=== PATIENT | male | born 1940 | race Caucasian/White ===

== ENCOUNTER 2019-06-01 16:17 | Emergency (ER) | payer SELFPAY ==
[2019-06-01 16:19] VITALS: BP 122/76; PULSE 122; RESP 18; TEMP 37.2; O2SAT 93; BMI 28.5
[2019-06-01 21:16] VITALS: TEMP 37.2
== END 2019-06-01 19:07 | disposition left against medical advice (07) ==
LOC: ED 17:19
PROVIDERS: Emergency Provider Emergency Medicine
DX: R19.7 Diarrhea, unspecified (principal); Z53.21 Procedure and treatment not carried out due to patient leaving prior to being seen by health care provider

== ENCOUNTER 2023-10-26 12:47 | Inpatient (IN) | payer MEDICARE, SELFPAY ==
[2023-10-26 12:48] VITALS: BP 149/76; PULSE 64; RESP 14; TEMP 36.4; O2SAT 98; BMI 24.3
[2023-10-26 14:25] LABS: Absolute Neutrophil Count 4.4 X10^3/uL (2.0-7.7); Basophil# 0.03 X10^3/uL; Basophil% 0.5 % (0-1); Eosinophil# 0.07 X10^3/uL; Eosinophils% 1.2 % (0-5); Hematocrit 46.9 % (40-54); Hemoglobin 15.4 g/dL (13.0-16.5); Lymphocyte % 16.8 % (19-41); Mean Corp Hgb Conc 32.8 g/dL (32-36); Mean Corpuscular Volume 91.4 fL (80-94); Mean Platelet Vol. 8.9 fl (6.2-12.0); Monocyte# 0.46 X10^3/uL; Monocyte% 7.7 % (0-10); NRBC Flagged by Analyzer 0 % (0-5); Neutrophil # 4.38 X10^3/uL (2.7-7.7); Neutrophil % 73.6 % (47-70); Platelet Count 224 K/mm3 (150-450); RBC Distribution Width CV 12.4 % (11.6-14.6); RBC Distribution Width SD 41.3 fl (35.1-43.9); Red Blood Count 5.13 M/mm3 (4.6-6.2)
--- NOTE | 2023-10-26 14:37 | ED.VIS.GI ---
HPI <JULIA Franklin - Last Filed: 10/26/23 20:53> HPI - GI History of Present Illness Chief Complaint: Abd Pain Narrative Narrative: Patient presenting today due to dysphagia that started on . He reports that he was trying to eat a piece of chicken and felt like it was stuck in his epigastric area, he was able to burp the piece of chicken back up. Yesterday, he tried to eat a few pieces of cheese and bread but those also felt stuck in his epigastric area and he again was able to burp them up. He reports that he has not had much food to eat since because of this. He was unable to take his medication this morning. He is tolerating his secretions and has been drinking water. However, he reports that even water hurts to swallow and does not feel like it is going down correctly. He denies any history of this happening before he denies any history of esophageal motility issues. Over the past week he has had some intermittent lower abdominal cramping but is not experiencing this right now. He has had normal bowel movements. He denies fever, chills, nausea, vomiting. PFSH <JULIA Franklin - Last Filed: 10/26/23 20:53> PFSH Medical History (Updated 10/26/23 @ 20:21 by Julissa Brennan) [place] (hard of hearing) Hyperlipidemia Neck fracture Home Medications aspirin 81 mg chewable tablet (Aspirin Childrens) 1 tab PO DAILY heart health 10/26/23 [History Last Taken 10/23/23] ezetimibe 10 mg tablet 10 mg PO DAILY Cholesterol 10/26/23 [History Last Taken 10/23/23] Allergy/AdvReac Type Severity Reaction Status Date / Time No Known Allergies Allergy Verified 10/26/23 20:11 Surgical History (Updated 10/26/23 @ 20:21 by Julissa Brennan) History of hip replacement Social History Smoking Status: Never smoker ROS <JULIA Franklin - Last Filed: 10/26/23 20:53> ROS ED Constitutional Constitutional ED: Denies chills or fever(s) Cardiovascular Cardiovascular: Denies chest pain Respiratory/Chest Respiratory/Chest: Denies cough or dyspnea Gastrointestinal Gastrointestinal: Denies abdominal pain, nausea or vomiting Genitourinary Genitourinary ED: Denies dysuria, hematuria or urinary urgency Musculoskeletal Musculoskeletal: Denies arthralgias or myalgias Integumentary Denies rash Neurologic Neurologic: Denies weakness EXAM <JULIA Franklin - Last Filed: 10/26/23 20:53> Physical Exam Const Vital Signs: 10/26/23 12:48 10/26/23 16:48 Temperature 97.6 F L Temperature Source Temporal Pulse Rate 64 78 Respiratory Rate 14 16 Blood Pressure 149/76 H 148/78 H Blood Pressure Mean 100 101 Pulse Ox 98 Oxygen Delivery Method Room Air Room Air Positive well nourished, well developed and no apparent distress General Appearance ED: well developed HEENT Reports normocephalic and head/scalp atraumatic Mouth ED: Yes moist mucous membranes normal Eyes PERRL and EOMs intact bilaterally Neck full ROM and supple Chest Wall inspection of chest normal Resp normal respiratory effort and clear to auscultation bilaterally Cardio regular rate and regular rhythm GI soft to palpation, non-tender, non-distended and no masses Back/Spine normal ROM and normal to inspection Extremity normal to inspection and full ROM Neuro oriented x3, CN's II-XII intact bilaterally, moves all extremities, no focal motor deficits and no sensory deficits noted Sensorium / Orientation: awake and alert Psych mental status grossly normal and thought process normal Skin no rashes or lesions noted and no wounds <Dr. Kenan Gusman, - Last Filed: 10/26/23 21:00> Physical Exam Const Vital Signs: 10/26/23 12:48 10/26/23 16:48 Temperature 97.6 F L Temperature Source Temporal Pulse Rate 64 78 Respiratory Rate 14 16 Blood Pressure 149/76 H 148/78 H Blood Pressure Mean 100 101 Pulse Ox 98 Oxygen Delivery Method Room Air Room Air MDM <JULIA Franklin - Last Filed: 10/26/23 20:53> [facility] Narrative Medical decision making narrative: Patient presenting with dysphagia that started on . He has had very little to eat since then. He reports that whenever he tries to eat food it feels stuck in his epigastric region he is able to burp this up. He has no history of esophageal motility issues. He is able to drink water but reports that it hurts to swallow and does not feel like it is going down correctly. He did report having intermittent lower abdominal cramping over the past week. CT of the abdomen and pelvis suggest colitis and gastritis with possible malignancy. This was discussed with general surgery, he has been started on ciprofloxacin and Flagyl, he will be admitted to the hospital for further workup. I have personally performed a face to face assessment of the patient and have reviewed the UMAIR Note. I performed a substantive portion of the visit including all aspects of the following. My wells findings include: History is [patient presents to the emergency department difficulty swallowing for about a week. Patient states that 2 days ago he tried to swallow a small piece of chicken and count went down but he had to cough it back up to his it was uncomfortable and could not get it down. Now he is having hard time swallowing water without a lot of discomfort. Has not eaten very much about a week. Also complaining of some lower left quadrant abdominal pain. He had no fever or chills or sweats. He denies any blood in stool or black tarry stool. Patient has history of coronary artery disease with prior stent. Patient also has high cholesterol.] Exam is [HEENT-PERRLA, EOMI. Cranial nerves II through XII grossly intact. TMs clear. Mucous membranes moist. No adenopathy. Cardiovascular-regular rate and rhythm without murmur or ectopy Lungs-clear to auscultation, chest wall stable without crepitus or subcu emphysema Abdomen-abdomen'sNormal active bowel sounds. Tender to palpation over the left lower quadrant with some mild guarding. There is no rebound, rigidity, or peritoneal signs. No masses palpated. Extremities-intact ?4, normal range of motion, normal pulses, atraumatic] Medical Decison Making [ Patient presents with difficulty swallowing concerning for esophagitis versus esophageal stricture. Also complaining of left lower quadrant abdominal pain which could indicate possible diverticulitis. Will obtain basic labs and a CT scan of the abdomen pelvis. Lab work essentially unremarkable. CT scan of the abdomen pelvis shows concern for colitis and gastritis versus infiltrative process such as a malignancy. Patient also had small ascites. Discussed case with Dr. Pitts the general surgeon on-call who recommended admission for antibiotics and further evaluation for malignancy with likely EGD. Will discuss with hospitalist to evaluate patient for admission. ] Other additions or changes: [None] Lab Data Attestation: I reviewed the patient's lab results. Lab results narrative: Creatinine 1.31, total bilirubin 1.8 Labs: Laboratory Results - last 24 hr 10/26/23 10/26/23 14:15 14:44 WBC 6.0 RBC 5.13 Hgb 15.4 Hct 46.9 MCV 91.4 MCH 30.0 MCHC 32.8 RDW Std Deviation 41.3 RDW Coeff of [place] 12.4 Plt Count 224 MPV 8.9 Immature Gran % (Auto) 0.200 Neut % (Auto) 73.6 H Lymph % (Auto) 16.8 L [place] % (Auto) 7.7 Eos % (Auto) 1.2 Baso % (Auto) 0.5 Absolute Neuts (auto) 4.4 Absolute Lymphs (auto) 1.00 Nucleated RBC % 0 Sodium 141 Potassium 4.9 Chloride 104 Carbon Dioxide 29.0 Anion Gap 8 BUN 18 Creatinine 1.31 H Estim Creat Clear Calc 41.35 Est GFR (MDRD) Af Amer 68 Est GFR (MDRD) Non-Af 56 L BUN/Creatinine Ratio 13.7 Glucose 90 Calcium 8.9 Total Bilirubin 1.80 H AST 33 ALT 27 Alkaline Phosphatase 91 Total Protein 7.2 Albumin 4.1 Globulin 3.1 Albumin/Globulin Ratio 1.3 Lipase 50 Urine Color Yellow Urine Clarity Clear Urine pH 5.0 Ur Specific Burt 1.025 Urine Protein 30 H Urine Glucose (UA) Normal Urine Ketones 50 H Urine Occult Blood Negative Urine Nitrite Negative Urine Bilirubin Negative Urine Urobilinogen Normal Ur Leukocyte Esterase Negative Urine RBC 0 SEEN Urine WBC 0 SEEN Ur Squamous Epith Cells 0 SEEN Urine Bacteria 0 SEEN Urine Mucus 0 SEEN Radiography Diagnostic Testing: Clinical Impression(s) from Imaging Studies Abdomen/Pelvis CT 10/26/23 14:40 IMPRESSION: Findings suggestive of mild diffuse colitis. Diverticulosis with no signs of diverticulitis. No bowel obstruction. Mild ascites in the upper abdomen, etiology indeterminate. Edema involving the anterior peritoneum with early metastatic deposits if there is history of neoplasm not excluded. Clinical correlation recommended and follow-up exam recommended to assess resolution. Diffuse gastritis versus infiltrative process, follow-up with upper endoscopy recommended. Electronically Signed: Patrizia Mg MD at 16:59 EST , <Dr. Kenan Gusman, DO - Last Filed: 10/26/23 21:00> [facility] Narrative Medical decision making narrative: Patient presenting with dysphagia that started on . He has had very little to eat since then. He reports that whenever he tries to eat food it feels stuck in his epigastric region he is able to burp this up. He has no history of esophageal motility issues. He is able to drink water but reports that it hurts to swallow and does not feel like it is going down correctly. He did report having intermittent lower abdominal cramping over the past week. I have personally performed a face to face assessment of the patient and have reviewed the UMAIR Note. I performed a substantive portion of the visit including all aspects of the following. My wells findings include: History is [patient presents to the emergency department difficulty swallowing for about a week. Patient states that 2 days ago he tried to swallow a small piece of chicken and count went down but he had to cough it back up to his it was uncomfortable and could not get it down. Now he is having hard time swallowing water without a lot of discomfort. Has not eaten very much about a week. Also complaining of some lower left quadrant abdominal pain. He had no fever or chills or sweats. He denies any blood in stool or black tarry stool. Patient has history of coronary artery disease with prior stent. Patient also has high cholesterol.] Exam is [HEENT-PERRLA, EOMI. Cranial nerves II through XII grossly intact. TMs clear. Mucous membranes moist. No adenopathy. Cardiovascular-regular rate and rhythm without murmur or ectopy Lungs-clear to auscultation, chest wall stable without crepitus or subcu emphysema Abdomen-abdomen'sNormal active bowel sounds. Tender to palpation over the left lower quadrant with some mild guarding. There is no rebound, rigidity, or peritoneal signs. No masses palpated. Extremities-intact ?4, normal range of motion, normal pulses, atraumatic] Medical Decison Making [ Patient presents with difficulty swallowing concerning for esophagitis versus esophageal stricture. Also complaining of left lower quadrant abdominal pain which could indicate possible diverticulitis. Will obtain basic labs and a CT scan of the abdomen pelvis. Lab work essentially unremarkable. CT scan of the abdomen pelvis shows concern for colitis and gastritis versus infiltrative process such as a malignancy. Patient also had small ascites. Discussed case with Dr. Pitts the general surgeon on-call who recommended admission for antibiotics and further evaluation for malignancy with likely EGD. Will discuss with hospitalist to evaluate patient for admission. ] Other additions or changes: [None] Lab Data Labs: Laboratory Results - last 24 hr 10/26/23 10/26/23 14:15 14:44 WBC 6.0 RBC 5.13 Hgb 15.4 Hct 46.9 MCV 91.4 MCH 30.0 MCHC 32.8 RDW Std Deviation 41.3 RDW Coeff of [place] 12.4 Plt Count 224 MPV 8.9 Immature Gran % (Auto) 0.200 Neut % (Auto) 73.6 H Lymph % (Auto) 16.8 L [place] % (Auto) 7.7 Eos % (Auto) 1.2 Baso % (Auto) 0.5 Absolute Neuts (auto) 4.4 Absolute Lymphs (auto) 1.00 Nucleated RBC % 0 Sodium 141 Potassium 4.9 Chloride 104 Carbon Dioxide 29.0 Anion Gap 8 BUN 18 Creatinine 1.31 H Estim Creat Clear Calc 41.35 Est GFR (MDRD) Af Amer 68 Est GFR (MDRD) Non-Af 56 L BUN/Creatinine Ratio 13.7 Glucose 90 Calcium 8.9 Total Bilirubin 1.80 H AST 33 ALT 27 Alkaline Phosphatase 91 Total Protein 7.2 Albumin 4.1 Globulin 3.1 Albumin/Globulin Ratio 1.3 Lipase 50 Urine Color Yellow Urine Clarity Clear Urine pH 5.0 Ur Specific Burt 1.025 Urine Protein 30 H Urine Glucose (UA) Normal Urine Ketones 50 H Urine Occult Blood Negative Urine Nitrite Negative Urine Bilirubin Negative Urine Urobilinogen Normal Ur Leukocyte Esterase Negative Urine RBC 0 SEEN Urine WBC 0 SEEN Ur Squamous Epith Cells 0 SEEN Urine Bacteria 0 SEEN Urine Mucus 0 SEEN Radiography Diagnostic Testing: Clinical Impression(s) from Imaging Studies Abdomen/Pelvis CT 10/26/23 14:40 IMPRESSION: Findings suggestive of mild diffuse colitis. Diverticulosis with no signs of diverticulitis. No bowel obstruction. Mild ascites in the upper abdomen, etiology indeterminate. Edema involving the anterior peritoneum with early metastatic deposits if there is history of neoplasm not excluded. Clinical correlation recommended and follow-up exam recommended to assess resolution. Diffuse gastritis versus infiltrative process, follow-up with upper endoscopy recommended. Electronically Signed: Patrizia Mg MD at 16:59 EST , Discharge Plan Dx/Rx/DC Orders Clinical Impression: Colitis, Dysphagia, Gastritis Disposition Disposition: Acute Care Hospital [facility] Discharge Date/Time: 10/26/23 19:47
--- NOTE | 2023-10-26 14:40 | CT_ITS ---
STUDY: CT ABDOMEN AND PELVIS WITH CONTRAST REASON FOR EXAM: Male, 83 years old. abdominal pain RADIATION DOSAGE (If Supplied By Facility): CTDIvol = ( 13.87 ) mGy, DLP = ( 528.19 ) mGycm TECHNIQUE: Transaxial images were obtained from the dome of the diaphragm to the symphysis pubis without oral contrast. IV 100mL Isovue-[id number] was administered. Sagittal and coronal images were reconstructed. Individualized dose optimization techniques were used for this CT. COMPARISON: None. FINDINGS: Minimal posterior dependent atelectasis. Normal cardiac size with coronary artery calcifications. Normal liver. The gallbladder is contracted with thickening of gallbladder wall. There is mild ascites in the upper abdomen. There is irregular tortuous density noted diffusely throughout the anterior abdominal wall which may indicate peritoneal edema, cannot exclude early peritoneal metastatic implants. There are multiple benign calcified granulomata of the spleen. Normal pancreas. Normal bilateral adrenal glands. Normal right kidney. Normal left kidney. Thickening of the wall throughout the stomach concerning for gastritis, more significant through the antrum. There is a small hiatal hernia. Normal small intestine. There is mild thickening of the wall throughout the colon concerning for colitis. There is diverticulosis throughout the colon more so through the sigmoid with no focal signs of diverticulitis. There is non-visualization of the appendix. There is diffuse atherosclerotic calcification of the abdominal aorta, without a demonstrated aneurysm. Normal inferior vena cava. Normal retroperitoneum. Normal urinary bladder. Pelvic structures are obscured by superimposition of artifact related to bilateral hip prosthesis. Trace ascites within the pelvis. Small bilateral fat-containing inguinal hernias versus cord lipomas. Advanced degenerative disease throughout the spine. CT/Abdomen/Pelvis W IV Cont ONLY IMPRESSION: Findings suggestive of mild diffuse colitis. Diverticulosis with no signs of diverticulitis. No bowel obstruction. Mild ascites in the upper abdomen, etiology indeterminate. Edema involving the anterior peritoneum with early metastatic deposits if there is history of neoplasm not excluded. Clinical correlation recommended and follow-up exam recommended to assess resolution. Diffuse gastritis versus infiltrative process, follow-up with upper endoscopy recommended. Electronically Signed: Patrizia Mg MD at 16:59 EST ,
[2023-10-26 14:43] LABS: ALB/GLOB Ratio 1.3 RATIO (0.9-2.4); AST(SGOT) 33 U/L (15-37); Alanine Aminotransfer ALT/SGPT 27 U/L (16-61); Albumin, Serum 4.1 g/dL (3.2-5.0); Alkaline Phosphatase 91 U/L (45-117); Anion Gap 8 (5-15); BUN 18 mg/dL (7-18); BUN/Creat Ratio 13.7 RATIO (10-20); Calcium,Total 8.9 mg/dL (8.5-10.1); Chloride 104 mmol/L (98-107); Creatinine, Serum 1.31 mg/dL (0.70-1.30); EST Glomerular Filtration Rate 56 mL/min (>60); Est Glom Filt Rate - Afr Amer 68 mL/min (>60); Estimated Creatinine Clearance 41.35 ml/min; Globulin 3.1 g/dL (2.2-4.2); Glucose 90 mg/dL (74-106); Potassium 4.9 mmol/L (3.5-5.1); Protein, Total 7.2 g/dL (6.4-8.2); Sodium Level 141 mmol/L (136-145)
[2023-10-26] MEDS: 0.9% Normal Saline (1000mL) 1,000 ML 999 ML IV (14:52)
--- OUTSIDE RECORDS SUMMARY | 2023-10-26 15:03 | XMS RPT_ITS | CCD ---
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 Patient Diagnosis(es): The primary encounter diagnosis was Dizziness. A diagnosis of Posterior circulation stroke (HCC) was also pertinent to this visit. has a past medical history of BPH (benign prostatic hyperplasia), CAD (coronary artery disease), Gout, Heart attack (HCC), Hyperlipidemia, Kidney stones, and Left ventricular dysfunction. has a past surgical history that includes Coronary angioplasty with stent (Left, 06/21/15); Diagnostic Cardiac Vocational Rehabilitation Supervisor Procedure (05/2015,10/2015); Coronary angioplasty; Cervical spine surgery; joint replacement (Left, 1994); and joint replacement (Right, 2002). 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 admitted with sudden onset ataxia and dizziness. Carlita 100 to 80. Recent history oftick bite, Lyme pending. Subjective Subjective: Pt. laying in bed, agree with PT treatment. Pain Screening Patient Currently in Pain: Yes Pain Assessment Pain Assessment: 0-10 Pain Level: 3 Pain Type: Acute pain Pain Location: Head Pain Descriptors: Headache Functional Pain Assessment: Activities are not prevented Non-Pharmaceutical Pain Intervention(s): Ambulation/Increased Activity Vital Signs Patient Currently in Pain: Yes Orientation Orientation Overall Orientation Status: Within Functional Limits Social/Functional History Social/Functional History Lives With: Spouse Type of Home: House Home Layout: Two level Home Access: Stairs to enter with rails Entrance Stairs - Number of Steps: 12 to 2nd floor ADL Assistance: Independent Homemaking Assistance: Independent Ambulation Assistance: Independent Transfer Assistance: Independent Active 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: Yes Type of occupation: [employer]ovani Cognition Cognition Overall Cognitive Status: WFL Objective Observation/Palpation Posture: Good AROM RLE (degrees) RLE AROM: WFL AROM LLE (degrees) LLE AROM : WFL Strength RLE Comment: 4+/5 Strength LLE Comment: 4+/5 Tone RLE RLE Tone: Normotonic Tone LLE LLE Tone: Normotonic Motor Control Gross Motor?: WNL Sensation Overall Sensation Status: WNL Bed mobility Supine to Sit: Independent Scooting: Independent Transfers Sit to Stand: Modified independent Stand to sit: Modified independent Stand Pivot Transfers: Modified independent Ambulation Ambulation?: Yes WB Status: no restriction More Ambulation?: No Ambulation 1 Surface: level tile Device: No Device Assistance: Supervision Quality of Gait: assymetrical step length Gait Deviations: Slow Jacquie;Decreased step length;Decreased step height Distance: 150 ft Stairs/Curb Stairs?: Yes Stairs # Steps : 4 Stairs Height: 6 Assistance: Stand by assistance Balance Posture: Fair Sitting - Static: Good Sitting - Dynamic: Good Standing - Static: Good;- Standing - Dynamic: Good;- Plan Plan Times per week: 3-5x/wk Plan weeks: 2 weeks Current Treatment Recommendations: Strengthening, Transfer Training, Neuromuscular Re-education, Balance Training, Gait Training, Home Exercise Program, Functional Mobility Training, Stair training Safety Devices Type of devices: Gait belt, Call light within reach, Left in chair Restraints Initially in place: No G-Code OutComes Score AM-PAC Score AM-PAC Inpatient Mobility Raw Score : 24 (06/02/19835) AM-PAC Inpatient T-Scale Score : 61.14 (06/02/19835) Mobility Inpatient CMS 0-100% Score: 0 (06/02/19835) Mobility Inpatient CMS G-Code Modifier : CH (06/02/19835) Goals Short term goals Time Frame for Short term goals: 2 weeks Short term goal 1: Ambulate 300 ft, modified independent Short term goal 2: Negotiate 1 flight of stairs, modified independent Patient Goals Patient goals : To go home. Patient s Physical Therapy Plan of Care supervision is transferred to [facility] Rehab Department Physical Therapist. Therapy Time Individual Concurrent Group Co-treatment Time In 0815 Time Out 0830 Minutes 15 Dickson Regalado, PT, GCS * Merline Huggins SLP - 06/02/2019 7:47 AM EDT Speech Language Pathology Patient passed the Nursing Swallowing Screening and is on a Cardiac diet. Completed speech orders as per stroke protocol. documented in this encounter* Tad Nolan RN - 01/11/2021 8:31 AM EDT Awake and alert. Denies pain. Tolerating oral fluids well. Denies nausea. Family called to pick pt up. * Isamar Stevens RN - 01/11/2021 7:10 AM EDT Timeout performed prior to wrist block procedure. Dr Pena in attendance. documented in this encounter Additional Source Comments (unrecognized sect ion and content) No Status Records FoundNo Status Records FoundNo Status Records FoundNo Status Records FoundNo Status Records FoundNo Status Records Found INFORMATION SOURCE (unrecogn ized section and content) DATE CREATED AUTHOR AUTHOR'S ORGANIZ ATION 11/30/2019 [facility] DATE CREATED AUTHOR AUTHOR'S ORGANIZ ATION 01/16/2021 [facility] DATE CREATED AUTHOR AUTHOR'S ORGANIZ ATION 02/07/2021 [facility] DATE CREATED AUTHOR AUTHOR'S ORGANIZ ATION 01/21/2022 [facility] ntjer[facility]n Barajas DATE CREATED AUTHOR AUTHOR'S ORGANIZ ATION 08/27/2023 [facility] Reason for Visit (unrecogniz ed section and content) Reason Comments Dizziness nausea, diarrhea tod ay Reason Comments Dizziness Fatigue Ordered Prescriptions (unrec ognized section and content) Care Teams (unrecognized sec tion and content) FOR RECORDS PERTAINING TO PATIENTS WHO ARE OR HAVE BEEN ENROLLED IN A CHEMICAL DEPENDENCY/SUBSTANCEABUSE PROGRAM, SOME INFORMATION MAY BE OMITTED. This clinical summary was aggregated from multiple sources. Caution should be exercised in using it in the provision of clinical care. This summary normalizes information from multiple sources, and as a consequence, information in this document may materially change the coding, format and clinical context of patient data. In addition, data may be omitted in some cases. CLINICAL DECISIONS SHOULD BE BASED ON THE PRIMARY CLINICAL RECORDS. [facility] [employer] [facility]. provides no warranty or guarantee of the accuracy or completeness of information in this document.
[2023-10-26 15:12] LABS: Lipase 50 U/L (13-75)
[2023-10-26 16:06] LABS: Bacteria 0 SEEN /hpf (None Seen); Mucous, Urine 0 SEEN /hpf (<or=2+); Red Blood Cells-Urine 0 SEEN /hpf (0-5); Squamous Epithelial Cells - UA 0 SEEN /hpf (0-5); White Blood Cells 0 SEEN /hpf (0-5)
[2023-10-26 16:08] LABS: Color, Urine Yellow (Yellow); Glucose, Dipstick Normal (Normal); Ketone-Dipstick 50 mg/dl (Negative); Leukocyte Esterase-Dipstick Negative /ul (Negative); Nitrite-Dipstick Negative (Negative); Occult Blood-Urine Negative /ul (Negative); Protein-Dipstick 30 mg/dl (Negative); Specific Gravity, Urine 1.025 (1.002-1.030); Urine Bilirubin Dipstick Negative (Negative); Urine Clarity Clear (Clear); Urine Urobilinogen Normal (Normal)
[2023-10-26 16:48] VITALS: BP 148/78; PULSE 78; RESP 16
[2023-10-26] MEDS: metroNIDAZOLE 500 MG/100 ML BAG 100 MG IV (18:20)
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
--- NOTE | 2023-10-26 18:24 | NURSING ---
MED SURG PHILLIPS DYSPHAGIA, GASTRITIS, COLITIS, CONCERN FOR MALIGNANCY
--- NOTE | 2023-10-26 19:05 | HP.PCM.HOS_ITS ---
HPI - General General Date of Admission: 10/26/23 Date of Service: 10/26/23 Chief Complaint: Dysphagia HPI Narrative IRINA SEXTON, is a 83-year-old male who presented to [facility] 10/26/2023 due to dysphagia that started on . He was trying to eat a piece of chicken and felt like it got stuck in his epigastric region and was able to burp the chicken back up. Yesterday tried to eat a few pieces of cheese and bread but also felt this got stuck again and was able to burp them back up. Has not had much to eat or drink since because of this and was unable to take his medicines this morning. Has been tolerating secretions and has been drinking water but feels that even water hurts to swallow and does not feel like it is going down correctly. Denies any history of anything like this in the past. In the past week he has had some abdominal cramping intermittently in the lower quadrants but normal bowel movements and not presently having any complaints. Lab workup fairly benign aside from bilirubin of 1.8 with otherwise normal liver panel and creatinine of 1.31 with no previous comparison. CT abdom en pelvis obtained which showed mild diffuse colitis with mild ascites in upper abdomen and edema involving anterior peritoneum with early metastatic deposits potentially if neoplasm not excluded as well as diffuse gastritis versus infiltrative process and recommended upper endoscopy. Hospitalist contacted for admission. Patient evaluated at bedside. Patient endorses history as above, pain when swallowing even water but more feeling in his chest and not his upper throat or palate, has never had this problem before. Has been a little bit constipated for him as he usually has bowel movements every day but has been having them now every other day, denies any history of upper endoscopy or lower endoscopies. Denies any nausea or vomiting, no diarrhea, no other complaints at this time [facility] Allergy/AdvReac Type Severity Reaction Status Date / Time No Known Allergies Allergy Verified 10/26/23 20:11 Social History Smoking Status: Never smoker ROS ROS Narrative General: Denies fever HENT: Denies headache, denies stuffy nose, denies sore throat EYES: Denies changes in vision Resp: Denies cough, denies shortness of breath Cardiac: Denies chest pain GI: some constipation, some pain when swallowing but no other abdominal pain, denies nausea/vomiting : Denies changes in urination Extremity: Denies swelling MSK: Denies weakness Neuro: Denies any numbness/tingling Heme: Denies any bleeding or bruising Skin: Denies rashes Psychiatric: No complaints voiced Vital Signs Vital Signs Vital Signs: 10/26/23 12:48 10/26/23 16:48 Temperature 97.6 F L Temperature Source Temporal Pulse Rate 64 78 Respiratory Rate 14 16 Blood Pressure 149/76 H 148/78 H Blood Pressure Mean 100 101 Pulse Ox 98 Oxygen Delivery Method Room Air Room Air Weight Weight: 70.579 kg Body Mass Index (BMI) 24.3 Physical Exam Narrative General: Alert, oriented, no apparent distress HEENT: Atraumatic, normocephalic Eyes: Anicteric, normal conjunctiva, extraocular movements grossly intact Neck: Supple Respiratory: Clear to auscultation bilaterally, normal respiratory effort Cardiovascular: Regular rate and rhythm GI: Soft, very slightly tender in lower quadrants without rebound, guarding, rigidity, nondistended Extremities: No edema Musculoskeletal: Moving all extremities Neuro: No overt focal neurological deficits Skin: No rashes appreciated Psych: Cooperative Results Lab / Micro Data 10/26/23 14:15 10/26/23 14:15 Labs: Laboratory Results - last 24 hr 10/26/23 14:15: WBC 6.0, RBC 5.13, Hgb 15.4, Hct 46.9, MCV 91.4, MCH 30.0, MCHC 32.8, RDW Std Deviation 41.3, RDW Coeff of Muluget[place] 12.4, Plt Count 224, MPV 8.9, Immature Gran % (Auto) 0.200, Neut % (Auto) 73.6 H, Lymph % (Auto) 16.8 L, [place] % (Auto) 7.7, Eos % (Auto) 1.2, Baso % (Auto) 0.5, Absolute Neuts (auto) 4.4, Absolute Lymphs (auto) 1.00, Nucleated RBC % 0, Sodium 141, Potassium 4.9, Chloride 104, Carbon Dioxide 29.0, Anion Gap 8, BUN 18, Creatinine 1.31 H, Estim Creat Clear Calc 41.35, Est GFR (MDRD) Af Amer 68, Est GFR (MDRD) Non-Af 56 L, BUN/Creatinine Ratio 13.7, Glucose 90, Calcium 8.9, Total Bilirubin 1.80 H, AST 33, ALT 27, Alkaline Phosphatase 91, Total Protein 7.2, Albumin 4.1, Globulin 3.1, Albumin/Globulin Ratio 1.3 10/26/23 14:44: Lipase 50, Urine Color Yellow, Urine Clarity Clear, Urine pH 5.0, Ur Specific Index 1.025, Urine Protein 30 H, Urine Glucose (UA) Normal, Urine Ketones 50 H, Urine Occult Blood Negative, Urine Nitrite Negative, Urine Bilirubin Negative, Urine Urobilinogen Normal, Ur Leukocyte Esterase Negative, Urine RBC 0 SEEN, Urine WBC 0 SEEN, Ur Squamous Epith Cells 0 SEEN, Urine B acteria 0 SEEN, Urine Mucus 0 SEEN Imagaing Radiology Impression Abdomen/Pelvis CT 10/26/23 14:40 IMPRESSION: Findings suggestive of mild diffuse colitis. Diverticulosis with no signs of diverticulitis. No bowel obstruction. Mild ascites in the upper abdomen, etiology indeterminate. Edema involving the anterior peritoneum with early metastatic deposits if there is history of neoplasm not excluded. Clinical correlation recommended and follow-up exam recommended to assess resolution. Diffuse gastritis versus infiltrative process, follow-up with upper endoscopy recommended. Electronically Signed: Patrizia Mg MD at 16:59 EST , Assessment & Plan Assessment/Plan (1) Dysphagia: (2) Colitis: (3) Gastritis: PLAN: Plan #Dysphagia/diffuse gastritis vs infiltrative process/diffuse colitis -CT abdomen pelvis obtained which showed mild diffuse colitis with mild ascites in upper abdomen and edema involving anterior peritoneum with early metastatic deposits potentially if neoplasm not excluded as well as diffuse gastritis versus infiltrative process and recommended upper endoscopy. -Case discussed with general surgery by ED physician and GI consult was recommended as well as Cipro and Flagyl, continue antibiotics -Clear liquid diet -Consult speech therapy -C/s GI -IV fluids #CKD stage IIIa vs SERENA -No baseline creatinine, creatinine 1.31 today, patient to receive IV fluids, will trend #?Hx CAD -Did not endorse in ED but pt may have hx of CAD and stenting remotely per ED note, this was noted after evaluation, will need to clarify, does not appear pt taking routine medications for this #DVT ppx: SCDs Zaira Horta MD Time spent in the patient's overall evaluation,decision-making process, review of diagnostic data, adjustment of management, discussion with other providers, nursing nursing and ancillary staff involved in patient's care documentation, 55 Minutes Charges/Coding Visit Charges Inpatient E&M: 91393 Init Hosp L2
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
[2023-10-26 19:45] VITALS: BP 145/85; PULSE 78; RESP 18; O2SAT 95
[2023-10-26 19:58] VITALS: BP 131/90; PULSE 70; RESP 18; TEMP 36.4; O2SAT 98
[2023-10-26 20:00] VITALS: BMI 23.6
[2023-10-26] MEDS: Pantoprazole Sodium 40 MG in 0.9% Normal Saline (100mL MB+) 100 ML 330 MG IV (22:13)
[2023-10-26] MEDS: 0.9% Normal Saline (1000mL) 1,000 ML 75 ML IV (22:13)
[2023-10-26] MEDS: 0.9% Saline Lock 10 ML Syringe IV (22:14)
[2023-10-26] MEDS: Ciprofloxacin 400 MG/200 ML BAG 200 MG IV (22:52)
[2023-10-27] VITALS (7 sets, daily range): BP systolic 87–154; BP diastolic 53–134; PULSE 65–93; RESP 16–18; TEMP 36.6–37.1; O2SAT 93–97
[2023-10-27] MEDS: metroNIDAZOLE 500 MG/100 ML BAG 100 MG IV ×3 (05:51→22:46)
[2023-10-27 07:36] LABS: Absolute Lymphocyte Count 0.79 X10^3/uL (0.83-4.51); Absolute Neutrophil Count 3.6 X10^3/uL (2.0-7.7); Basophil# 0.04 X10^3/uL; Basophil% 0.8 % (0-1); Eosinophil# 0.09 X10^3/uL; Eosinophils% 1.8 % (0-5); Hemoglobin 13.5 g/dL (13.0-16.5); Lymphocyte # 0.79 X10^3/ul (0.83-4.51); Lymphocyte % 15.7 % (19-41); Mean Corp Hgb Conc 32.9 g/dL (32-36); Mean Corpuscular Hgb 30.4 pg (27.0-32.0); Mean Corpuscular Volume 92.3 fL (80-94); Mean Platelet Vol. 9.2 fl (6.2-12.0); Monocyte# 0.48 X10^3/uL; Monocyte% 9.5 % (0-10); NRBC Flagged by Analyzer 0 % (0-5); Neutrophil # 3.61 X10^3/uL (2.7-7.7); Neutrophil % 71.8 % (47-70); Platelet Count 219 K/mm3 (150-450); RBC Distribution Width CV 12.4 % (11.6-14.6); RBC Distribution Width SD 42.4 fl (35.1-43.9); Red Blood Count 4.44 M/mm3 (4.6-6.2)
[2023-10-27 07:53] LABS: Anion Gap 9 (5-15); BUN 18 mg/dL (7-18); BUN/Creat Ratio 13.6 RATIO (10-20); Calcium,Total 8.7 mg/dL (8.5-10.1); Chloride 109 mmol/L (98-107); Cholesterol 130 mg/dL (200); Creatinine, Serum 1.32 mg/dL (0.70-1.30); EST Glomerular Filtration Rate 55 mL/min (>60); Est Glom Filt Rate - Afr Amer 67 mL/min (>60); Estimated Creatinine Clearance 41.03 ml/min; Glucose 69 mg/dL (74-106); High Density Lipoprotein 53 mg/dL; Potassium 4.2 mmol/L (3.5-5.1); Sodium Level 140 mmol/L (136-145); Thyroid Stim Hormone (TSH) 2.66 uIU/mL (0.358-3.74); Triglycerides 56 mg/dL; Very Low Density Lipoprotein 11 mg/dL (5-40)
[2023-10-27 07:59] LABS: International Normalized Ratio 1.1; Prothrombin Time (Protime)PT. 14.3 SECONDS (11.7-14.9)
[2023-10-27] MEDS: Pantoprazole Sodium 40 MG in 0.9% Normal Saline (100mL MB+) 100 ML 330 MG IV ×2 (10:02→20:34)
--- NOTE | 2023-10-27 10:12 | PN.HOSP_ITS ---
Reason for Visit Reason for Visit: Dysphagia Subjective Subjective Mr. Dee was an 83-year-old male that presented to the emergency department at [facility] on 10/26/2023 due to dysphagia that started on . He was trying to eat a piece of chicken and felt like it got stuck in his epigastric region. He was able to burp the chicken back up. On the day prior to presentation, he was trying to eat a few pieces of cheese and bread but also felt that this got stuck and he was able to burp them back up. He reported he has not had much to eat or drink since due to this. He was unable to take his medicines on the morning of presentation. He has been tolerating his own secretions and drinking water but states that even water is hurting him now. He is never had anything like this previously. Lab work on presentation was overall unremarkable. His creatinine was found to be 1.3 but we had no previous for comparison so unclear if this is baseline or if he was mildly hydrated. A CT of his abdomen pelvis was obtained and showed mild diffuse colitis with ascites in the upper abdomen and edema involving the anterior peritoneum with early metastatic deposits potentially neoplasm were not able to be excluded as well as diffuse gastritis versus infiltrative process and upper endoscopy was recommended. States he is tolerating ice chips periodically. Even water has been difficult for him to swallow. States is progressively gotten worse over the last month or 2. Denies a history of tobacco or alcohol abuse. Objective Data Objective Data Vital Signs: Vital Signs Temp Pulse Resp BP Pulse Ox O2 Del Method 98.7 F 66 18 87/58 L 97 Room Air 10/27/23 09:07 10/27/23 09:07 10/27/23 09:07 10/27/23 09:07 10/27/23 09:07 10/27/23 09:07 Oxygen Delivery Method Room Air Weight: 68.4 kg Body Mass Index (BMI) 23.6 Intake & Output: Intake and Output for Last 24 Hours 10/25/23 10/26/23 10/27/23 23:59 23:59 23:59 Intake Total 1466.25 / 1466.25 100 / 100 Balance 1466.25 / 1466.25 100 / 100 Lab / Micro Data 10/27/23 06:55 10/27/23 06:55 Labs: Laboratory Results - last 24 hr 10/26/23 14:15: WBC 6.0, RBC 5.13, Hgb 15.4, Hct 46.9, MCV 91.4, MCH 30.0, MCHC 32.8, RDW Std Deviation 41.3, RDW Coeff of [place] 12.4, Plt Count 224, MPV 8.9, Immature Gran % (Auto) 0.200, Neut % (Auto) 73.6 H, Lymph % (Auto) 16.8 L, [place] % (Auto) 7.7, Eos % (Auto) 1.2, Baso % (Auto) 0.5, Absolute Neuts (auto) 4.4, Absolute Lymphs (auto) 1.00, Nucleated RBC % 0, Sodium 141, Potassium 4.9, Chloride 104, Carbon Dioxide 29.0, Anion Gap 8, BUN 18, Creatinine 1.31 H, Estim Creat Clear Calc 41.35, Est GFR (MDRD) Af Amer 68, Est GFR (MDRD) Non-Af 56 L, BUN/Creatinine Ratio 13.7, Glucose 90, Calcium 8.9, Total Bilirubin 1.80 H, AST 33, ALT 27, Alkaline Phosphatase 91, Total Protein 7.2, Albumin 4.1, Globulin 3.1, Albumin/Globulin Ratio 1.3 10/26/23 14:44: Lipase 50, Urine Color Yellow, Urine Clarity Clear, Urine pH 5.0, Ur Specific [place] 1.025, Urine Protein 30 H, Urine Glucose (UA) Normal, Urine Ketones 50 H, Urine Occult Blood Negative, Urine Nitrite Negative, Urine Bilirubin Negative, Urine Urobilinogen Normal, Ur Leukocyte Esterase Negative, Urine RBC 0 SEEN, Urine WBC 0 SEEN, Ur Squamous Epith Cells 0 SEEN, Urine Bacteria 0 SEEN, Urine Mucus 0 SEEN 10/27/23 06:55: WBC 5.0, RBC 4.44 L, Hgb 13.5, Hct 41.0, MCV 92.3, MCH 30.4, MCH C 32.9, RDW Std Deviation 42.4, RDW Coeff of [place] 12.4, Plt Count 219, MPV 9.2, Immature Gran % (Auto) 0.400, Neut % (Auto) 71.8 H, Lymph % (Auto) 15.7 L, [place] % (Auto) 9.5, Eos % (Auto) 1.8, Baso % (Auto) 0.8, Absolute Neuts (auto) 3.6, Absolute Lymphs (auto) 0.79 L, Nucleated RBC % 0, PT 14.3, INR 1.1, Sodium 140, Potassium 4.2, Chloride 109 H, Carbon Dioxide 22.0, Anion Gap 9, BUN 18, Creati nine 1.32 H, Estim Creat Clear Calc 41.03, Est GFR (MDRD) Af Amer 67, Est GFR (MDRD) Non-Af 55 L, BUN/Creatinine Ratio 13.6, Glucose 69 L, Calcium 8.7, Triglycerides 56, Cholesterol 130, LDL Cholesterol 66, VLDL Cholesterol 11, HDL Cholesterol 53, TSH 2.66 Radiography Diagnostic Testing: Radiology Impression Abdomen/Pelvis CT 10/26/23 14:40 IMPRESSION: Findings suggestive of mild diffuse colitis. Diverticulosis with no signs of diverticulitis. No bowel obstruction. Mild ascites in the upper abdomen, etiology indeterminate. Edema involving the anterior peritoneum with early metastatic deposits if there is history of neoplasm not excluded. Clinical correlation recommended and follow-up exam recommended to assess resolution. Diffuse gastritis versus infiltrative process, follow-up with upper endoscopy recommended. Electronically Signed: Patrizia Mg MD at 16:59 EST , Physical Exam Const alert, oriented x3, no apparent distress and average body habitus Constitutional Narrative: Elderly, white male, lying in bed resting comfortably, appears comfortable and nontoxic, awakens easily, appears much younger than stated age HEENT head/scalp atraumatic and moist oral mucous membranes HEENT Narrative: Mallampati 2, no thrush Head and Scalp: normocephalic Resp normal respiratory effort, no retractions, no use of accessory muscles and clear to auscultation bilaterally Auscultation: Negative for rales, rhonchi or wheezes Cardio regular rate, regular rhythm, S1 normal heart sound, S2 normal heart sound, no murmurs, no rub, no gallops and no clicks GI normal to inspection, nondistended, normoactive bowel sounds, soft to palpation and non-tender GI Narrative: No significant fluid wave noted Extremity no clubbing, cyanosis or edema Extremity Narrative: Pedal pulses are 2+ Neuro oriented x3, moves all extremities and no focal motor deficits Speech: speech normal Psych affect normal Psych Narrative: Pleasant, interacts appropriately Assessment & Plan Assessment/Plan (1) Gastritis: (2) Dysphagia: (3) Colitis: PLAN: Plan Dysphagia/diffuse gastritis versus infiltrative process/diffuse colitis -Markedly abnormal CT on presentation which showed diffuse colitis and mild ascites in the upper abdomen with edema involving the anterior peritoneum concerning for early metastatic deposits and neoplasm as well as diffuse darien ritis versus infiltrative process and upper endoscopy was recommended -Case was discussed with general surgery and GI prior to admission -Jessica recommended--> continue antibiotics -Clear liquid diet for now but patient not tolerating much liquid also will start IV fluids at 75 cc/h with normal saline -IV PPI will increase to twice daily -Speech therapy consultation pending -Will check CT of the chest for any metastatic disease or primary or external compression of the esophagus -GI consultation is pending with probable plan for EGD tomorrow -Will make patient n.p.o. at midnight CKD stage IIIa -Serum creatinine on presentation was 1.31 and it is 1.32 today -Continue to monitor and avoid nephrotoxins -Continue IV fluids with gentle hydration due to lack of p.o. intake Hyperlipidemia -Hold home Zetia -Total cholesterol is 130 with an LDL of 66 and HDL 53 DVT prophylaxis -Start enoxaparin 40 daily and monitor hemoglobin closely CODE STATUS -DNR CCA with no intubation as verified on admission Charges/Coding Visit Charges Inpatient E&M: 33246 Subs Hosp L2
--- NOTE | 2023-10-27 10:14 | CT_ITS ---
STUDY: CT CHEST WITHOUT CONTRAST REASON FOR EXAM: Male, 83 years old. Dysphagia RADIATION DOSAGE (If Supplied By Facility): CTDIvol = ( 10.54 ) mGy, DLP = ( 368.78 ) mGycm TECHNIQUE: Transaxial imaging was performed without the administration of intravenous contrast material. Individualized dose optimization techniques were used for this CT. COMPARISON: None. FINDINGS: A calcified granuloma is present in lingula of the left upper lobe. The visualized aspects of the esophagus are grossly unremarkable. A small hiatal hernia is present containing food contents at the gastroesophageal junction with slight distention. Abdominal ascites is seen in the upper abdomen along with mesenteric edema. There is also mild to moderate mucosal thickening of the inner falls of the ascending colon and hepatic flexure. Multiple splenic granulomata are present. Multiple gallstones are present. Punctate bilateral calyceal stones are present in both kidneys. Multiple calcifications are present in the liver and spleen. There are interstitial fibrotic changes of the lungs. There is no demonstrated pleural abnormality. There is no visualized pneumonic consolidation or suspicious masses or nodules. Multiple small calcified granulomata are present in both lungs. Normal heart and pericardium. There are calcifications of the coronary arteries. Normal mediastinum. Normal hilar regions. Normal unenhanced pulmonary arteries. Normal aorta arch and descending thoracic aorta. Normal osseous structures. There is no demonstrated abnormality of the visualized upper abdomen. CT/Chest without Contrast IMPRESSION: 1. The visualized aspects of the esophagus are grossly unremarkable. A small hiatal hernia is present containing food contents at the gastroesophageal junction with slight distention. Abdominal ascites is seen in the upper abdomen along with mesenteric edema. There is also mild to moderate mucosal thickening of the inner falls of the ascending colon and hepatic flexure. Multiple splenic granulomata are present. 2. Multiple gallstones are present. Punctate bilateral calyceal stones are present in both kidneys. Multiple calcifications are present in the liver and spleen. 3. There is no visualized pneumonic consolidation or suspicious masses or nodules. Multiple small calcified granulomata are present in both lungs. Electronically Signed: Aramis Ross MD at 12:19 EST ,
[2023-10-27] MEDS: Ciprofloxacin 400 MG/200 ML BAG 200 MG IV ×2 (10:24→21:18)
[2023-10-27] MEDS: 0.9% Normal Saline (1000mL) 1,000 ML 75 ML IV ×2 (13:42→18:28)
--- NOTE | 2023-10-27 19:55 | CON.PCM.GI_ITS ---
HPI Consult Data Date of Consult: 10/27/23 HPI Narrative Reason for Consultation: dysphagia HPI Narrative: IRINA SEXTON, is a 83 M who presents with trouble swallowing. He presented to [facility] 10/26/2023 due to dysphagia that started on . He was trying to eat a piece of chicken and felt like it got stuck in his epig astric region and was able to burp the chicken back up. Yesterday tried to eat a few pieces of cheese and bread but also felt this got stuck again and was able to burp them back up. He has not had much to eat or drink since because of this and was unable to take his medicines this morning. Has been tolerating secretions and has been drinking water but feels that even water hurts to swallow and does not feel like it is going down correctly. Denies any history of anything like this in the past. In the past week he has had some abdominal cramping intermittently in the lower quadrants but normal bowel movements and not presently having any complaints. Lab workup fairly benign aside from bilirubin of 1.8 with otherwise normal liver panel and creatinine of 1.31 with no previous comparison. CT abdomen pelvis obtained which showed mild diffuse colitis with mild ascites in upper abdomen and edema involving anterior peritoneum with early metastatic deposits potentially if neoplasm not excluded as well as diffuse gastritis versus infiltrative process and recommended upper endoscopy. Patient endorses history as above, pain when swallowing even water but more feeling in his chest and not his upper throat or palate, has never had this problem before. Has been a little bit constipated for him as he usually has bowel movements every day but has been having them now every other day, denies any history of upper endoscopy or lower endoscopies. [facility] Medical History (Updated 10/27/23 @ 19:[address] Rios Friend, DO) [place] (hard of hearing) Hyperlipidemia Neck fracture Stage 3a chronic kidney disease (CKD) Home Medications aspirin 81 mg chewable tablet (Aspirin Childrens) 1 tab PO DAILY heart health 10/26/23 [History Last Taken 10/23/23] ezetimibe 10 mg tablet 10 mg PO DAILY Cholesterol 10/26/23 [History Last Taken 10/23/23] Allergy/AdvReac Type Severity Reaction Status Date / Time No Known Allergies Allergy Verified 10/26/23 20:11 Surgical History (Updated 10/26/23 @ 20:21 by Julissa Brennan) History of hip replacement Social History Smoking Status: Never smoker ROS ROS Narrative General: Denies fever HENT: Denies headache, denies stuffy nose, denies sore throat EYES: Denies changes in vision Resp: Denies cough, denies shortness of breath Cardiac: Denies chest pain GI: some constipation, some pain when swallowing but no other abdominal pain, denies nausea/vomiting : Denies changes in urination Extremity: Denies swelling MSK: Denies weakness Neuro: Denies any numbness/tingling Heme: Denies any bleeding or bruising Skin: Denies rashes Psychiatric: No complaints voiced Physical Exam Narrative General: Alert, oriented, no apparent distress HEENT: Atraumatic, normocephalic Eyes: Anicteric, normal conjunctiva, extraocular movements grossly intact Neck: Supple Respiratory: Clear to auscultation bilaterally, normal respiratory effort Cardiovascular: Regular rate and rhythm GI: Soft, very slightly tender in lower quadrants without rebound, guarding, rigidity, nondistended Extremities: No edema Musculoskeletal: Moving all extremities Neuro: No overt focal neurological deficits Skin: No rashes appreciated Psych: Cooperative Lab / Micro Data 10/27/23 06:55 10/27/23 06:55 Labs: Laboratory Results - last 24 hr 10/27/23 06:55: WBC 5.0, RBC 4.44 L, Hgb 13.5, Hct 41.0, MCV 92.3, MCH 30.4, MCHC 32.9, RDW Std Deviation 42.4, RDW Coeff of [place] 12.4, Plt Count 219, MPV 9.2, Immature Gran % (Auto) 0.400, Neut % (Auto) 71.8 H, Lymph % (Auto) 15.7 L, [place] % (Auto) 9.5, Eos % (Auto) 1.8, Baso % (Auto) 0.8, Absolute Neuts (auto) 3.6, Absolute Lymphs (auto) 0.79 L, Nucleated RBC % 0, PT 14.3, INR 1.1, Sodium 140, Potassium 4.2, Chloride 109 H, Carbon Dioxide 22.0, Anion Gap 9, BUN 18, Creatinine 1.32 H, Estim Creat Clear Calc 41.03, Est GFR (MDRD) Af Amer 67, Est GFR (MDRD) Non-Af 55 L, BUN/Creatinine Ratio 13.6, Glucose 69 L, Calcium 8.7, Triglycerides 56, Cholesterol 130, LDL Cholesterol 66, VLDL Cholesterol 11, HDL Cholesterol 53, TSH 2.66 Imagaing Radiology Impression Chest CT 10/27/23 10:14 IMPRESSION: 1. The visualized aspects of the esophagus are grossly unremarkable. A small hiatal hernia is present containing food contents at the gastroesophageal junction with slight distention. Abdominal ascites is seen in the upper abdomen along with mesenteric edema. There is also mild to moderate mucosal thickening of the inner falls of the ascending colon and hepatic flexure. Multiple splenic granulomata are present. 2. Multiple gallstones are present. Punctate bilateral calyceal stones are present in both kidneys. Multiple calcifications are present in the liver and spleen. 3. There is no visualized pneumonic consolidation or suspicious masses or nodules. Multiple small calcified granulomata are present in both lungs. Electronically Signed: Aramis Ross MD at 12:19 EST Reading Location ID and State: [address] [place] [address] , Service support , Assessment & Plan Assessment/Plan (1) Dysphagia: QUALIFIERS: Dysphagia type: esophageal phase Qualified Code(s): R13.19 - Other dysphagia (2) Colitis: (3) Gastritis: QUALIFIERS: Gastritis type: other gastritis Chronicity: chronic Gastritis bleeding: without bleeding Qualified Code(s): K29.50 - Unspecified chronic gastritis without bleeding PLAN: Plan 83 yo with progressive dysphagia -Differential diagnosis does include esophageal malignancy, esophageal stricture, eosinophilic esophagitis, sliding hiatal hernia. -CT abdomen pelvis obtained which showed mild diffuse colitis with mild ascites in upper abdomen and edema involving anterior peritoneum with early metastatic deposits potentially if neoplasm not excluded as well as diffuse gastritis versus infiltrative process and recommended upper endoscopy. -He will undergo an upper endoscopy to evaluate his upper GI tract. He was explained alternatives, risk, benefits including not withstanding bleeding, infection, sepsis, perforation, need for more discharge and . He will have an ASA of 3. Charges/Coding Visit Charges Inpatient E&M: 67982 Init Hosp L3
[2023-10-28] VITALS (10 sets, daily range): BP systolic 84–105; BP diastolic 50–69; PULSE 51–90; RESP 16–18; TEMP 36.3–37.2; O2SAT 90–97
--- NOTE | 2023-10-28 | GASB_PTH ---
PATHOLOGY RESULTS PATIENT: IRINA SEXTON Jr. LOC: MS3 U#:[id number] AGE/SX: 83/M ROOM: [facility] [place]10/26/[address]: Dr. Cody Garcia DO : 1940 BED: 1 DIS: 10/29/2023 SPEC #: [id number] RECD: 10/28/23 08:50 STATUS: RENÉE REQ #: [id number] ANNELISE: 10/28/23 00:[address]: Gabriel Ashley DEPT: SURGICAL PATHOLOGY RECD BY: Connor Seals ENTERED: 10/28/23 10:23 SP TYPE: Gastric Bx OTHR DR: DO Dr. Jitendra Shen MD Dr. Kathryn Lee, DO Dr. Paige Pierce, MD Tissues: Gastric mucous membrane Gastric mucous membrane Stomach, NOS Esophageal mucous membrane Gastric mucous membrane Procedures: Frozen Section (charge) Special Stain Group II Mucicarmine Stain (control) Surgery Specimen Level IV Alcian Blue/PAS (control) Comments: @ Ordering doctor for FSC edited from to DR.RFRIEN Yair MADDEN at 10/28/23 1030 @ Ordering doctor for SUIV edited from to @ beryl MADDEN at 10/28/23 1030 @ Submitting doctor edited from to DR.RFRIEN Yair MADDEN at 10/28/23 1030 HEADER OPERATION: EGD with foreign body removal and biopsy PRE-OP DIAGNOSIS: Dysphagia TISSUE SUBMITTED: A - Gastric body biopsy for frozen section, B - Gastric body biopsy, C - Gastric antrum biopsy for H. pylori and path, D - Lesser curvature biopsy, E - Distal esophagus biopsy FROZEN SECTION DIAGNOSIS A. Gastric body, biopsy: Negative for malignancy. LUCILA:janessa 10/28/2023 MICROSCOPIC DIAGNOSIS A. 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 See comment. B. 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 See comment. C. Gastric antrum, biopsy: Mild gastritis. Negative for malignancy. See microscopic description and comment. D. 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 See comment. E. Distal esophagus, biopsy: Poorly differentiated carcinoma, signet ring cell carcinoma. See comment. LUCILA:janessa 10/30/2023 COMMENT A. Immunohistochemistry (RF24-30) supports the above diagnosis. Mucin stain with matched control was used in the evaluation of the specimen. B. Immunohistochemistry (RF24-30) supports the above diagnosis. Mucin stain with matched control was used in the evaluation of the specimen. C. The results of immunohistochemistry for Helicobacter pylori will be reported separately (RF24-30). Immunohistochemistry (RF24-30) supports the above diagnosis. Mucin stain with matched control was used in the evaluation of the specimen. D. Immunohistochemistry (RF24-30) supports the above diagnosis. Mucin stain with matched control was used in the evaluation of the specimen. E. Immunohistochemistry (RF24-30) supports the above diagnosis. Mucin stain and alcian blue/PAS with matched controls are in the evaluation of the specimen. Immunohistochemistry (RF23-30) for microsatellite instability (mismatch repair of protein) will be performed and the results will be reported separately. This case is discussed with Dr. Ashley on 10/29/23. Case has been reviewed in consultation with Dr. Alfonso who concurs with the above diagnosis. IDC:AM MICROSCOPIC DESCRIPTION Slides are reviewed. C. The specimen shows fragments of gastric mucosa with chronic inflammatory cell infiltrates in the lamina propria consisting of lymphocytes and plasma cells, consistent with mild chronic gastritis. GROSS DESCRIPTION A - Received fresh for frozen section diagnosis labeled with the patient's name is a specimen designated gastric body biopsy. The specimen consists of three irregular fragments of light soft tissue that in aggregate measure 0.7 x 0.2 x 0.1 cm. The entire specimen is submitted for frozen section diagnosis in one cassette. B - Received in fixative is one container labeled with the patient's name and designated gastric body biopsy. The specimen consists of multiple irregular fragments of light light soft tissue that in aggregate measure 1.0 x 0.4 x 0.1 cm. The specimen is totally submitted in one cassette. C - Received in fixative is one container labeled with the patient's name and designated gastric antrum biopsy. The specimen consists of multiple irregular fragments of light light soft tissue that in aggregate measure 0.8 x 0.5 x 0.1 cm. The specimen is totally submitted in one cassette. D - Received in fixative is one container labeled with the patient's name and designated lesser curvature biopsy. The specimen consists of multiple irregular fragments of light light soft tissue that in aggregate measure 1.0 x 0.3 x 0.1 cm. The specimen is totally submitted in one cassette. E - Received in fixative is one container labeled with the patient's name and designated distal esophagus biopsy. The specimen consists of multiple irregular fragments of light light soft tissue that in aggregate measure 1.0 x 0.4 x 0.1 cm. The specimen is totally submitted in one cassette. / SJ:rg 10/28/2023 TC:0 [facility]: [id number] x5, [id number], [id number] x6 ADDENDUM ADDENDUM 01/16/2024 09:54 ONKOSIGHT NGS REPORT FROM [employer] INTERPRETATION: Negative: No pathogenic gene fusions detected involving ALK, DARIUSZ, BRAF, CCND1, EGFR, FGFR1, FGFR2, FGFR3, MET, NRG1, NTRK1, NTRK2, NTRK3, PPARD, RAF1, RET, ROS1 or THADA. Please see complete report in e-chart or EMR
[2023-10-28] MEDS: metroNIDAZOLE 500 MG/100 ML BAG 100 MG IV ×3 (05:35→23:11)
[2023-10-28 06:22] LABS: Absolute Lymphocyte Count 0.98 X10^3/uL (0.83-4.51); Absolute Neutrophil Count 3.6 X10^3/uL (2.0-7.7); Basophil# 0.02 X10^3/uL; Basophil% 0.4 % (0-1); Eosinophil# 0.13 X10^3/uL; Eosinophils% 2.4 % (0-5); Lymphocyte # 0.98 X10^3/ul (0.83-4.51); Lymphocyte % 18.2 % (19-41); Mean Corp Hgb Conc 32.5 g/dL (32-36); Mean Corpuscular Hgb 30.1 pg (27.0-32.0); Mean Corpuscular Volume 92.6 fL (80-94); Monocyte# 0.62 X10^3/uL; Monocyte% 11.5 % (0-10); NRBC Flagged by Analyzer 0 % (0-5); Neutrophil % 67.1 % (47-70); Platelet Count 190 K/mm3 (150-450); RBC Distribution Width CV 12.2 % (11.6-14.6); RBC Distribution Width SD 41.9 fl (35.1-43.9); Red Blood Count 4.32 M/mm3 (4.6-6.2); White Blood Count 5.4 K/mm3 (4.4-11.0)
[2023-10-28 06:45] LABS: Anion Gap 9 (5-15); BUN 17 mg/dL (7-18); BUN/Creat Ratio 12.1 RATIO (10-20); Calcium,Total 8.3 mg/dL (8.5-10.1); Chloride 110 mmol/L (98-107); EST Glomerular Filtration Rate 52 mL/min (>60); Est Glom Filt Rate - Afr Amer 63 mL/min (>60); Estimated Creatinine Clearance 38.69 ml/min; Glucose 75 mg/dL (74-106); Potassium 4.1 mmol/L (3.5-5.1); Sodium Level 139 mmol/L (136-145)
--- NOTE | 2023-10-28 08:20 | IMM_PTH ---
PATHOLOGY RESULTS PATIENT: IRINA SEXTON Jr. LOC: MS3 U#:[id number] AGE/SX: 83/M ROOM: [facility] [place] RE10/26/[address]: Dr. Cody Garcia DO : 1940 BED: 1 DIS: 10/29/2023 SPEC #: [id number] RECD: 10/28/23 14:04 STATUS: RENÉE REQ #: [id number] ANNELISE: 10/28/23 08:[address]: Gabriel Ashley DEPT: IMMUNOHISTOCHEMISTRY RECD BY: Ewelina Benitez ENTERED: 10/28/23 14:05 SP TYPE: IMMUNO OTHR DR: DO Dr. Jitendra Shen MD Dr. Kathryn Lee, DO Dr. Paige Pierce, MD Dr. Rahsaan Friend, DO Tissues: Stomach, NOS Stomach, NOS Stomach, NOS Stomach, NOS Esophageal mucous membrane Procedures: CK8 (initial) H Pylori (initial) MSH2 (add) MLH-1 (add) MSH6 (add) Anti-PMS2 (add) CK20 (add) CK7 (add) CK8 (add) HER2 SRIDHAR (add) KI-67 (add) P53 (add) Pankeratin (add) CDX2 (add) Comments: @ Ordering doctor for H.PYLORI edited from to @ by CHANO at 10/28/23 1416 @ Submitting doctor edited from to @ by CHANO at 10/28/23 1416 PHYSICIAN & INSTITUTION [address] [address] SPECIMEN INFORMATION: Tissue Source: A - Gastric body, B - Gastric body, C - Gastric antrum, D - Lesser curvature, E - Distal esophagus Clinical Info: Dysphagia Specimen Number: [id number] CPT code: 90127 x5, 22763 x20 METHODOLOGY: Deparaffinized sections of prefer/formalin-fixed tissue or PAP/DQ stained slides are incubated with monoclonal/polyclonal antibodies/oligonucleotide probes. Localization is made via biotin free immunoperoxidase method. Appropriate controls are performed and reacted as expected. Results on target cell population are indicated in the following table: RESULTS: ANTIBODY / CLONE RESULT Block A CK8 (66maxkC91) positive CK7 (OV-TL12/30) positive AE1-3 (AE1/AE3/PCK26) positive Block B CK8 (20bgwuG84) positive CK7 (OV-TL12/30) positive AE1-3 (AE1/AE3/PCK26) positive Block C H Pylori (polyclonal) negative CK8 (06vlxmK90) negative * CK7 (OV-TL12/30) negative AE1-3 (AE1/AE3/PCK26) negative * *?Positive in normal mucosal tissue. Block D CK8 (54slfxF76) positive CK7 (OV-TL12/30) positive AE1-3 (AE1/AE3/PCK26) positive Block E Her-2neu (CB11) negative (0) CK8 (92nfnxX04) positive CK7 (OV-TL12/30) positive, focal AE1-3 (AE1/AE3/PCK26) positive CK20 (KS20.8) negative CDX2 (ICL7662X) positive MLH-1 (M1) positive MSH2 (25D12) positive MSH6 (44) positive PMS2 (IAJ5256) positive Ki-67 (30-9) positive, moderate P53 (DO-7) positive, missense mutation pattern These tests were developed and their performance characteristics determined by [facility]. They may not have been cleared or approved by the U.S. Food and Drug Administration. The FDA has determined that such clearance or approval is not necessary. The above immunohistochemical/dualISH markers are ordered and reviewed by the Pathologist. INTERPRETATION: A. Gastric body, biopsy: Focal area of poorly differentiated carcinoma, signet ring cell carcinoma. B. Gastric body, biopsy: Focal area of poorly differentiated carcinoma, signet ring cell carcinoma. C. Gastric antrum, biopsy: Negative for Helicobacter pylori organisms. Negative for malignancy. D. Lesser curvature, biopsy: Focal area of poorly differentiated carcinoma, signet ring cell carcinoma. E. Distal esophagus, biopsy: Poorly differentiated carcinoma, signet ring cell carcinoma. Result of Microsatellite Instability Study: Negative (no loss of mismatch protein; no microsatellite instability detected). SJ:janessa 10/30/2023
--- NOTE | 2023-10-28 08:51 | OP.CCLET_ITS ---
10/28/2023 Jitendra Jorgensen Re : Upper GI endoscopy procedure for Rah Dee Dear Joslyn This procedure was performed on Saturday, October 28, 2023. My impressions and recommendations are as follows: Impressions : - Abnormal esophageal motility. - Food in the lower third of the esophagus. Removal was successful. - Moderate Schatzki ring. Dilated. - Nodular mucosa in the cardia, in the gastric body, in the greater curvature of the stomach, in the lesser curvature of the stomach and in the gastric antrum. Biopsied. - Duodenal erosions without bleeding. Recommendations : - [facility]. - Full liquid diet. - Continue present medications. - Await pathology results. My findings are described in the full procedure note, which is enclosed. If I can be of further assistance, please feel free to contact me at . Sincerely, Gabriel Ashley, 10/28/2023 8:50:41 AM This report has been signed electronically.
--- NOTE | 2023-10-28 08:51 | OP.EGD_ITS ---
Patient Name: Rah Dee Procedure Date: 10/28/2023 8:05 AM Date of : 1940 Age: 83 Procedure: Upper GI endoscopy Indications: Dysphagia Providers: Gabriel Ashley DO Medicines: Monitored Anesthesia Care Patient Profile: This is an 83 year old male. Refer to note in patient chart for documentation of history and physical. Patient has symptoms of dysphagia with both liquids and solids. Complications: No immediate complications. Procedure: Pre-Anesthesia Assessment: - Prior to the procedure, a History and Physical was performed, and patient medications and allergies were reviewed. The patient is competent. The risks and benefits of the procedure and the sedation options and risks were discussed with the patient. All questions were answered and informed consent was obtained. Patient identification and proposed procedure were verified by the physician. Mental Status Examination: normal. Prophylactic Antibiotics: The patient does not require prophylactic antibiotics. Prior Anticoagulants: The patient has taken no anticoagulant or antiplatelet agents. ASA Grade Assessment: III - A patient with severe systemic disease. After reviewing the risks and benefits, the patient was deemed in satisfactory condition to undergo the procedure. The anesthesia plan was to use monitored anesthesia care (MAC). Immediately prior to administration of medications, the patient was re-assessed for adequacy to receive sedatives. The heart rate, respiratory rate, oxygen saturations, blood pressure, adequacy of pulmonary ventilation, and response to care were monitored throughout the procedure. The physical status of the patient was re-assessed after the procedure. After obtaining informed consent, the endoscope was passed under direct vision. Throughout the procedure, the patient's blood pressure, pulse, and oxygen saturations were monitored continuously. The Endoscope was introduced through the mouth, and advanced to the second part of duodenum. The upper GI endoscopy was accomplished without difficulty. The patient tolerated the procedure well. Scope In: 8:13:06 AM Scope Out: 8:41:27 AM Total Procedure Duration Time 0 hours 28 minutes 21 seconds Findings: Abnormal motility was noted in the esophagus. The cricopharyngeus was normal. There are extra peristaltic waves in the esophageal body. The distal esophagus/lower esophageal sphincter is spastic, but gives up passage to the endoscope. Tertiary peristaltic waves are noted. Food was found in the lower third of the esophagus. Removal was accomplished with a Phillips net. Verification of patient identification for the specimen was done. Estimated blood loss was minimal. A moderate Schatzki ring was found at the gastroesophageal junction. A guidewire was placed and the scope was withdrawn. Dilation was performed with a Savary dilator with no resistance at 45 Fr. The dilation site was examined and showed mild mucosal disruption. Estimated blood loss was minimal. Diffuse nodular mucosa was found in the cardia, in the gastric body, on the greater curvature of the stomach, on the lesser curvature of the stomach and in the gastric antrum. Biopsies were taken with a cold forceps for histology. Verification of patient identification for the specimen was done. Estimated blood loss was minimal. A few localized erosions without bleeding were found in the duodenal bulb. Impression: - Abnormal esophageal motility. - Food in the lower third of the esophagus. Removal was successful. - Moderate Schatzki ring. Dilated. - Nodular mucosa in the cardia, in the gastric body, in the greater curvature of the stomach, in the lesser curvature of the stomach and in the gastric antrum. Biopsied. - Duodenal erosions without bleeding. Recommendation: - Return patient to [facility] for [facility] care. - Full liquid diet. - Continue present medications. - Await pathology results. Procedure Code(s): --- Professional --- 82737, Esophagogastroduodenoscopy, flexible, transoral; with removal of foreign body(s) 91684, 51, Esophagogastroduodenoscopy, flexible, transoral; with insertion of guide wire followed by passage of dilator(s) through esophagus over guide wire [id number], 59, Esophagogastroduodenoscopy, flexible, transoral; with biopsy, single or multiple CPT copyright 2021 [employer]. All rights reserved. The codes documented in this report are preliminary and upon salon assistant review may be revised to meet current compliance requirements. Gabriel Ashley DO 10/28/2023 8:50:41 AM This report has been signed electronically. Number of Addenda: 0 Note Initiated On: 10/28/2023 8:05 AM
[2023-10-28] MEDS: Pantoprazole Sodium 40 MG in 0.9% Normal Saline (100mL MB+) 100 ML 330 MG IV ×2 (09:56→21:30)
--- NOTE | 2023-10-28 10:40 | CASEMGMT ---
MARCELO ASENCIO Assessment Face to Face with patient for initial transition planning/care coordination assessment. MARCELO ASENCIO introduced self and role at [facility], pt voices understanding. Pt is A&Ox3 and is resting comfortably in bed and is calm. Care providers, pharmacy, and demographics verified. Admitting dx: Dysphagia LACE Strata: 1 PCP: Joslyn Specialists: Denies Preferred [facility]acy: [facility] Insurance: [employer]ARP [facility] Prescription Benefit: Yes LNOK: Shivani Dee (Daughter), Jessy Dee (), Gato Dee (Son) Living Arrangements: Pt states that his lives at home with his and son in a 2 story home with a basement with handrails. There are 3 steps to enter the home with no issues. ADLs/IADLs: States complete independence. Transportation: Pt states he, son, and daughter drive. DME: Pt states that he has a walker and cane at home but does not need to use. Denies O2 use and all other DME. HHC/SNF: Denies history or needs Pt Plan: DC home to his and son via his daughter with no additional needs. Pt denies any further questions or concerns at this time. Ana Palumbo RN, CM
[2023-10-28] MEDS: Ciprofloxacin 400 MG/200 ML BAG 200 MG IV ×2 (11:10→21:36)
[2023-10-28] MEDS: 0.9% Normal Saline (1000mL) 1,000 ML 75 ML IV (14:48)
[2023-10-28] MEDS: Bisacodyl 5 MG Tablet 20 MG PO (14:48)
[2023-10-28] MEDS: Polyethylene Glycol 3350 BOWEL PREP 1 BOTTLE PO (16:24)
--- NOTE | 2023-10-28 17:35 | PCM.PN.HOSP ---
Reason for Visit Reason for Visit: Diagnoses Unspecified chronic gastritis without bleeding (10/26/23) Gastritis, unspecified, without bleeding (10/26/23) Noninfective gastroenteritis and colitis, unspecified (10/26/23) Dysphagia, unspecified (10/26/23) Other dysphagia (10/26/23) Subjective Subjective Patient seen at bedside this afternoon, daughter present. Patient was having EGD done this morning. Was found to have Schatzki ring on EGD, esophagus was dilated. Patient states that he tolerated the procedure well, denies any chest pain or discomfort currently. Has not tried eating yet since coming back up to the floor. However, he is looking forward to trying liquids soon. He and daughter are agreeable to him having a colonoscopy done tomorrow for further evaluation as long as he is able to complete the prep tonight. Patient is anxious to go home as soon as he can. He denies any other acute concerns at this time. Objective Data Objective Data Vital Signs: Vital Signs Temp Pulse Resp BP Pulse Ox O2 Del Method O2 Flow Rate 98.0 F 51 L 16 91/56 L 95 Room Air 3 10/28/23 09:46 10/28/23 09:46 10/28/23 09:46 10/28/23 09:46 10/28/23 09:46 10/28/23 09:46 10/28/23 09:00 Oxygen Flow Rate (L/min) 3 Oxygen Delivery Method Room Air Weight: 68.4 kg Body Mass Index (BMI) 23.6 Intake & Output: Intake and Output for Last 24 Hours 10/26/23 10/27/23 10/28/23 23:59 23:59 23:59 Intake Total 1466.25 / 1466.25 2380.00 / 2480.00 1451.25 / 1451.25 Balance 1466.25 / 1466.25 2380.00 / 2480.00 1451.25 / 1451.25 Lab / Micro Data 10/28/23 06:10 10/28/23 06:10 Labs: Laboratory Results - last 24 hr 10/28/23 06:10: WBC 5.4, RBC 4.32 L, Hgb 13.0, Hct 40.0, MCV 92.6, MCH 30.1, MCHC 32.5, RDW Std Deviation 41.9, RDW Coeff of [place] 12.2, Plt Count 190, MPV 9.0, Immature Gran % (Auto) 0.400, Neut % (Auto) 67.1, Lymph % (Auto) 18.2 L, [place] % (Auto) 11.5 H, Eos % (Auto) 2.4, Baso % (Auto) 0.4, Absolute Neuts (auto) 3.6, Absolute Lymphs (auto) 0.98, Nucleated RBC % 0, Sodium 139, Potassium 4.1, Chloride 110 H, Carbon Dioxide 20.0 L, Anion Gap 9, BUN 17, Creatinine 1.40 H, Estim Creat Clear Calc 38.69, Est GFR (MDRD) Af Amer 63, Est GFR (MDRD) Non-Af 52 L, BUN/Creatinine Ratio 12.1, Glucose 75, Calcium 8.3 L Physical Exam Const alert, oriented x3, no apparent distress and average body habitus Constitutional Narrative: Elderly male, laying comfortably in bed, conversing normally, no acute distress. General Appearance: cooperative and comfortable HEENT normocephalic, head/scalp atraumatic, hearing grossly normal bilaterally, nasal mucous membranes and turbinates normal and moist oral mucous membranes Eyes PERRL, EOMs intact bilaterally and conjunctivae normal Neck full ROM, no lymphadenopathy and supple Lymph Lymphatic: no lymphadenopathy noted Chest inspection of chest normal Resp normal respiratory effort, normal air movement, no use of accessory muscles and clear to auscultation bilaterally Cardio regular rate, regular rhythm, no murmurs and peripheral pulses 2+ throughout GI normal to inspection, nondistended, normoactive bowel sounds, soft to palpation, non-tender and non-distended Back/Spine normal ROM Extremity normal to inspection, full ROM and no pedal edema Skin no rashes or lesions noted Neuro no focal motor deficits and no sensory deficits noted Speech: speech normal Psych mental status grossly normal Assessment & Plan Assessment/Plan (1) Dysphagia: QUALIFIERS: Dysphagia type: esophageal phase Qualified Code(s): R13.19 - Other dysphagia (2) Colitis: PLAN: Plan Patient is an 83-year-old male who presented to [facility] ED on 10/[facility]/2023 with dysphagia. 1. Dysphagia ? GI following. S/p EGD on 10/28, showed moderate Schatzki ring that was dilated, nodular mucosa in stomach without gastritis that was biopsied, duodenal erosions without bleeding, abnormal esophageal motility. Suspect Schatzki ring was primary reason for dysphagia but esophageal dysmotility also could be playing a role. Speech therapy consulted, MBSS ordered per their recommendations, will follow up. 2. Diffuse colitis, new onset ascites with concern for malignancy ? CT abdomen pelvis with IV contrast on admit showed findings suggestive of mild diffuse colitis; also showed mild ascites in upper abdomen and edema involving anterior peritoneum with concern for early metastatic deposits. GI following as above. Planning for colonoscopy tomorrow if patient is able to complete prep. Continue IV ciprofloxacin and IV Flagyl for now. Chronic medical conditions: ? CKD stage IIIa: Creatinine 1.3 on admit, stable at baseline. Monitor. ? Hyperlipidemia: Holding home Zetia, okay to restart on discharge. DVT prophylaxis: Lovenox CODE STATUS: DNR CCA, DNI Expected disposition: Home, 1 to 2 days Total clinical time spent by myself addressing the patient's medical issues, reviewing all the data, and collaborating with patient's care team: 35 minutes. Charges/Coding Visit Charges Inpatient E&M: 84554 Subs Hosp L2
[2023-10-28] MEDS: 0.9% Saline Lock 10 ML Syringe IV (21:36)
[2023-10-29] VITALS (11 sets, daily range): BP systolic 87–118; BP diastolic 56–80; PULSE 58–66; RESP 12–16; TEMP 36.4–37.1; O2SAT 94–98
[2023-10-29] MEDS: metroNIDAZOLE 500 MG/100 ML BAG 100 MG IV (06:00)
[2023-10-29] MEDS: 0.9% Saline Lock 10 ML Syringe IV (06:01)
[2023-10-29] MEDS: 0.9% Normal Saline (1000mL) 1,000 ML 75 ML IV (09:50)
[2023-10-29] MEDS: Pantoprazole Sodium 40 MG in 0.9% Normal Saline (100mL MB+) 100 ML 330 MG IV (09:50)
[2023-10-29] MEDS: Ciprofloxacin 400 MG/200 ML BAG 200 MG IV (10:51)
[2023-10-29] MEDS: Lactated Ringers 1,000 ML 15 ML IV (13:07)
--- NOTE | 2023-10-29 14:26 | OP.COLON_ITS ---
Patient Name: Rah Dee Procedure Date: 10/29/2023 1:41 PM Date of : 1940 Age: 83 Procedure: Colonoscopy Indications: Abnormal CT of the GI tract Providers: Gabriel Ashley DO Medicines: Monitored Anesthesia Care Patient Profile: This is an 83 year old male. Refer to note in patient chart for documentation of history and physical. Last Colonoscopy: none. The patient's first colonoscopy is today. Complications: No immediate complications. Procedure: Pre-Anesthesia Assessment: - Prior to the procedure, a History and Physical was performed, and patient medications and allergies were reviewed. The patient is competent. The risks and benefits of the procedure and the sedation options and risks were discussed with the patient. All questions were answered and informed consent was obtained. Patient identification and proposed procedure were verified by the physician in the pre-procedure area. Mental Status Examination: alert and oriented. Airway Examination: normal oropharyngeal airway and neck mobility. Respiratory Examination: clear to auscultation. CV Examination: normal. Prophylactic Antibiotics: The patient does not require prophylactic antibiotics. Prior Anticoagulants: The patient has taken no anticoagulant or antiplatelet agents. ASA Grade Assessment: II - A patient with mild systemic disease. After reviewing the risks and benefits, the patient was deemed in satisfactory condition to undergo the procedure. The anesthesia plan was to use monitored anesthesia care (MAC). Immediately prior to administration of medications, the patient was re-assessed for adequacy to receive sedatives. The heart rate, respiratory rate, oxygen saturations, blood pressure, adequacy of pulmonary ventilation, and response to care were monitored throughout the procedure. The physical status of the patient was re-assessed after the procedure. After I obtained informed consent, the scope was passed under direct vision. Throughout the procedure, the patient's blood pressure, pulse, and oxygen saturations were monitored continuously. The colonoscope was introduced through the anus and advanced to the cecum, identified by appendiceal orifice and ileocecal valve. The colonoscopy was performed without difficulty. The patient tolerated the procedure well. The quality of the bowel preparation was adequate. The ileocecal valve, appendiceal orifice, and rectum were photographed. Scope In: 1:57:21 PM Scope Withdrawal Time 0 hours 9 minutes 42 seconds Scope Out: 2:14:45 PM Total Procedure Duration Time 0 hours 17 minutes 24 seconds Findings: The perianal and digital rectal examinations were normal. Multiple small and large-mouthed diverticula were found in the recto-sigmoid colon and sigmoid colon. A diffuse area of moderate melanosis was found in the entire colon. Impression: - Diverticulosis in the recto-sigmoid colon and in the sigmoid colon. - Melanosis in the colon. - No specimens collected. Recommendation: - Return patient to [facility] for ongoing care. - Resume previous diet. - Continue present medications. - No repeat colonoscopy due to age. Procedure Code(s): --- Professional --- 33773, Colonoscopy, flexible; diagnostic, including collection of specimen(s) by brushing or washing, when performed (separate procedure) CPT copyright 2021 [place]. All rights reserved. The codes documented in this report are preliminary and upon soc analyst review may be revised to meet current compliance requirements. Gabriel Ashley DO 10/29/2023 2:26:33 PM This report has been signed electronically. Number of Addenda: 0 Note Initiated On: 10/29/2023 1:41 PM
--- NOTE | 2023-10-29 14:27 | OP.CCLET_ITS ---
10/29/2023 Jitendra Jorgensen Re : Colonoscopy procedure for Rah Dee Dear Joslyn This procedure was performed on Sunday, October 29, 2023. My impressions and recommendations are as follows: Impressions : - Diverticulosis in the recto-sigmoid colon and in the sigmoid colon. - Melanosis in the colon. - No specimens collected. Recommendations : - Return patient to [facility] for [facility] care. - Resume previous diet. - Continue present medications. - No repeat colonoscopy due to age. My findings are described in the full procedure note, which is enclosed. If I can be of further assistance, please feel free to contact me at . Sincerely, Gabriel Ashley, 10/29/2023 2:26:33 PM This report has been signed electronically.
--- NOTE | 2023-10-29 17:55 | DCINST_ITS ---
Discharge Instructions Diet Discharge Diet: No restrictions Activity Discharge Activity: No Restrictions Weight Bearing Status: Full weight bearing Follow Up Care Test Results: Test results from this visit will be discussed in further detail at your follow- up appointment, if applicable. Discharge Plan Admission Admit Date/Time: 10/26/23 19:05 Primary Reason for Your Visit: Difficulty swallowing Attending Provider: Cody Garcia Primary Care Provider: Jitendra Jorgensen Consulting Providers: Zaira Horta; Gerri Gee Discharge Orders/Prescriptions Prescriptions: Continued ezetimibe 10 mg tablet 10 mg PO DAILY Patient Comments: take 1 tablet by mouth daily aspirin [Aspirin Childrens] 81 mg tablet,chewable 1 tab PO DAILY Referrals / Follow Up: Jitendra Jorgensen MD [Primary Care Provider] - Care Physician,No Primary [Non-Staff] - Disposition Disposition (needs filled in before D/C Order can be placed): Home, Self Care
--- NOTE | 2023-10-29 17:56 | PCM.DC.SUM ---
Providers Date of Admission: 10/26/23 Date of Discharge: 10/29/23 Primary Care Physician: Dr. Jitendra Jorgensen MD Consultations 10/26/23 21:39 Consult: Gastroenterology Routine Consulting Provider: Dominick Gastroenterology Reason for Consult: dysphagia, gastritis, colitis, ?malignancy EMERGENT Consult: No MD Notified: Yes Date Notified: 10/26/23 Time Notified: 23:10 Method of Notification: phone Reason For Visit: DYSPHAGIA Diagnosis Discharge Diagnosis (1) Dysphagia: Status: Acute Code(s): R13.10 - Dysphagia, unspecified Qualifiers: Dysphagia type: esophageal phase Qualified Code(s): R13.19 - Other dysphagia (2) Colitis: Status: Acute Code(s): K52.9 - Noninfective gastroenteritis and colitis, unspecified Medications at Discharge Home Medications aspirin 81 mg chewable tablet (Aspirin Childrens) 1 tab PO DAILY heart health 10/26/23 ezetimibe 10 mg tablet 10 mg PO DAILY Cholesterol 10/26/23 Hospital Course Operations None Procedures Colonoscopy, EGD and - (CT chest w/out contrast, CT abdomen/pelvis with IV contrast) Summary of Care Provided Minutes Spent on Discharge: 35 Hospital Course: Patient is an 83-year-old male who presented to [facility] ED on 10/26/2023 with dysphagia. Hospital course as noted below. Discharged home in stable condition on 10/29. 1. 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 GI followed. S/p EGD on 10/28, showed moderate Schatzki ring that was dilated, nodular mucosa in stomach with biopsy sample taken that was prelim positive for gastric adenocarcinoma. Suspect Schatzki ring was primary reason for dysphagia but new cancer likely contributing as well. CTAP showed mild ascites in upper abdomen and edema involving anterior peritoneum with concern for early metastatic deposits. GI assisting with patient having close outpatient Oncology follow up after discharge. 2. Concern for diffuse colitis ? CT abdomen pelvis with IV contrast on admit showed findings suggestive of mild diffuse colitis. GI following as above. Colonoscopy 10/29 with multiple diverticuli noted w/ no diverticulitis. On IV cipro/flagyl while inpatient, [facility] on discharge. Chronic medical conditions: ? CKD stage IIIa: Creatinine 1.3 on admit, stable at baseline. ? Hyperlipidemia: Held home Zetia while inpatient, restarted on discharge. Total clinical time spent by myself addressing the patient's discharge needs: 35 minutes. Physical Exam Const alert, oriented x3, no apparent distress and average body habitus Constitutional Narrative: Elderly male, sitting up in bed, conversing normally, no acute distress. General Appearance: cooperative and comfortable HEENT normocephalic, head/scalp atraumatic, hearing grossly normal bilaterally, nasal mucous membranes and turbinates normal and moist oral mucous membranes Eyes PERRL, EOMs intact bilaterally and conjunctivae normal Neck full ROM, no lymphadenopathy and supple Lymph Lymphatic: no lymphadenopathy noted Chest inspection of chest normal Resp normal respiratory effort, normal air movement, no use of accessory muscles and clear to auscultation bilaterally Cardio regular rate, regular rhythm, no murmurs and peripheral pulses 2+ throughout GI normal to inspection, nondistended, normoactive bowel sounds, soft to palpation, non-tender and non-distended Back/Spine normal ROM Extremity normal to inspection, full ROM and no pedal edema Skin no rashes or lesions noted Neuro no focal motor deficits and no sensory deficits noted Speech: speech normal Psych mental status grossly normal Weight / BMI Weight Weight: 68.4 kg Body Mass Index (BMI) 23.6 ABG / Lab / Microbiology Data 10/28/23 06:10 10/28/23 06:10 D/C Instructions Discharge Diet: No restrictions Weight Bearing Status: Full weight bearing Meaningful Use Info Meaningful Use Diagnoses (Choose all that apply): None applicable Discharge Plan Admission Admit Date/Time: 10/26/23 19:05 Primary Reason for Your Visit: Difficulty swallowing Attending Provider: Cody Garcia Primary Care Provider: Jitendra Jorgensen Consulting Providers: Zaira Horta; Gerri Gee Discharge Orders/Prescriptions Prescriptions: Continued ezetimibe 10 mg tablet 10 mg PO DAILY Patient Comments: take 1 tablet by mouth daily aspirin [Aspirin Childrens] 81 mg tablet,chewable 1 tab PO DAILY Referrals / Follow Up: Jitendra Jorgensen MD [Primary Care Provider] - Care Physician,No Primary [Non-Staff] - Disposition Disposition (needs filled in before D/C Order can be placed): Home, Self Care Charges/Coding Visit Charges Inpatient E&M: 18645 Disch Hosp >30min
== END 2023-10-29 18:00 | disposition home or self-care (01) | DRG 392 ==
LOC: ED 18:13 → MS3 18:21
PROVIDERS: Internal Medicine; Internal Medicine Gastroenterology; Physician Assistant; Admitting Provider Internal Medicine; Emergency Provider Emergency Medicine; PCP Family Medicine; Visit Provider Hospitalist
PROC: 0DJ08ZZ Inspection of Upper Intestinal Tract, Via Natural or Artificial Opening Endoscopic (ICD-10-PCS; CPT 43235; principal; 2023-10-28 08:15)
PROC: 0DJD8ZZ Inspection of Lower Intestinal Tract, Via Natural or Artificial Opening Endoscopic (ICD-10-PCS; CPT 45378; principal; 2023-10-29 13:55)
DX: K22.2 Esophageal obstruction (principal); R18.8 Other ascites; C16.9 Malignant neoplasm of stomach, unspecified; C78.6 Secondary malignant neoplasm of retroperitoneum and peritoneum; T18.128A Food in esophagus causing other injury, initial encounter; K26.9 Duodenal ulcer, unspecified as acute or chronic, without hemorrhage or perforation; R13.19 Other dysphagia; N18.31 Chronic kidney disease, stage 3a; K22.4 Dyskinesia of esophagus; E78.00 Pure hypercholesterolemia, unspecified; I25.10 Atherosclerotic heart disease of native coronary artery without angina pectoris; K52.9 Noninfective gastroenteritis and colitis, unspecified; K57.30 Diverticulosis of large intestine without perforation or abscess without bleeding; K29.50 Unspecified chronic gastritis without bleeding; W44.F3XA Food entering into or through a natural orifice, initial encounter; Z66 Do not resuscitate; Z95.5 Presence of coronary angioplasty implant and graft; K63.89 Other specified diseases of intestine
CPT/HCPCS: 36415; 71250; 74177; 80048; 80053; 80061; 81001; 83690; 84443; 85025; 85610; 88305; 88313; 88331; 88341; 88342; 92610; 97802; 99284; J7030; J7120; Q9967; A4216; J0744; J2405

== ENCOUNTER → 2023-11-22 | Outpatient (CLI) | payer MEDICARE, SELFPAY ==
--- NOTE | 2023-11-22 | IMM_PTH ---
PATHOLOGY RESULTS PATIENT: IRINA SEXTON Jr. LOC: [facility]#:[id number] AGE/SX: 83/M ROOM: RE11/22/[address]: Dr. Dave Abraham MD : 1940 BED: DIS: 11/22/2023 SPEC #: [id number] RECD: 11/25/23 13:46 STATUS: RENÉE REQ #: [id number] ANNELISE: 11/22/23 00:[address]: Dave Abraham DEPT: IMMUNOHISTOCHEMISTRY RECD BY: Ewelina Benitez ENTERED: 11/25/23 13:50 SP TYPE: IMMUNO OTHR DR: Dr. Jitendra Jorgensen MD Tissues: PARACENTESIS FLUID Procedures: RCC (add) NAPSIN A (add) True Ret (add) CEA (add) CK20 (add) CK5-6 (add) CK7 (add) CK8 (add) MERLIN (add) HER2 SRIDHAR (add) KI-67 (add) P53 (add) TTF1 (add) Vimentin (add) Pankeratin (initial) GATA3 (add) P40 (add) CDX2 (add) PSAP (add) PAX8 (add) MOC-31 (add) PHYSICIAN & [place] [id number] SPECIMEN INFORMATION: Tissue Source: Paracentesis fluid Clinical Info: Ascites, gastric cancer Specimen Number: [id number] CPT code: 11371, 16325 x20 METHODOLOGY: Deparaffinized sections of prefer/formalin-fixed tissue or PAP/DQ stained slides are incubated with monoclonal/polyclonal antibodies/oligonucleotide probes. Localization is made via biotin free immunoperoxidase method. Appropriate controls are performed and reacted as expected. Results on target cell population are indicated in the following table: RESULTS: ANTIBODY / CLONE RESULT Her-2neu (CB11) negative AE1-3 (AE1/AE3/PCK26) positive CK7 (OV-TL12/30) positive CK8 (79imjmY43) positive CK20 (KS20.8) negative CDX2 (ZOQ3329U) negative Vimentin (V9) positive CALRET (polyclonal) positive CK5-6 (D5 & 1684) negative P40 (BC28) negative MERLIN (E29) positive CEA (11-7/TF-3HB-1) positive P53 (DO-7) positive, wild type Ki-67 (30-9) positive, low MOC-31 (4561) negative, dim PAX8 (MRQ50) negative GATA3 (L50-823) negative TTF-1 (8G7G3/1) negative Napsin A (Rabbit Polyclonal) negative RCC (PN-15) negative PSAP (PASE/4LJ) negative These tests were developed and their performance characteristics determined by [facility]. They may not have been cleared or approved by the U.S. Food and Drug Administration. The FDA has determined that such clearance or approval is not necessary. The above immunohistochemical/dualISH markers are ordered and reviewed by the Pathologist. INTERPRETATION: Paracentesis fluid (cell block): Atypical epithelioid cells present. AM:janessa 11/27/2023 Case has been reviewed in consultation with Dr. Myers who concurs with the above diagnosis. IDC:SJ
[2023-11-22 12:08] LABS: Absolute Lymphocyte Count 0.73 X10^3/uL (0.83-4.51); Absolute Neutrophil Count 3.9 X10^3/uL (2.0-7.7); Basophil# 0.03 X10^3/uL; Basophil% 0.6 % (0-1); Eosinophils% 1.9 % (0-5); Hematocrit 45.4 % (40-54); Hemoglobin 14.6 g/dL (13.0-16.5); Lymphocyte # 0.73 X10^3/ul (0.83-4.51); Lymphocyte % 13.7 % (19-41); Mean Corp Hgb Conc 32.2 g/dL (32-36); Mean Corpuscular Hgb 30.3 pg (27.0-32.0); Mean Corpuscular Volume 94.2 fL (80-94); Mean Platelet Vol. 9.2 fl (6.2-12.0); Monocyte# 0.52 X10^3/uL; Monocyte% 9.8 % (0-10); NRBC Flagged by Analyzer 0 % (0-5); Neutrophil # 3.86 X10^3/uL (2.7-7.7); Neutrophil % 72.3 % (47-70); Platelet Count 269 K/mm3 (150-450); RBC Distribution Width CV 12.6 % (11.6-14.6); RBC Distribution Width SD 43.5 fl (35.1-43.9); Red Blood Count 4.82 M/mm3 (4.6-6.2); White Blood Count 5.3 K/mm3 (4.4-11.0)
[2023-11-22 12:12] LABS: Prothrombin Time (Protime)PT. 13.5 SECONDS (11.7-14.9)
[2023-11-22] MEDS: Lidocaine 2% (20 ml mdv) 20 ML Vial INFILT (12:37)
--- NOTE | 2023-11-22 12:37 | FLU_PTH ---
PATHOLOGY RESULTS PATIENT: IRINA SEXTON Jr. LOC: [facility]#:[id number] AGE/SX: 83/M ROOM: RE11/22/[address]: Dr. Dave Abraham MD : 1940 BED: DIS: 11/22/2023 SPEC #: [id number] RECD: 11/22/23 13:54 STATUS: RENÉE CALERO #: [id number] ANNELISE: 11/22/23 12:[address]: Dave Abraham DEPT: CYTOLOGY RECD BY: Suad Munoz ENTERED: 11/22/23 13:54 SP TYPE: Fluid OTHR DR: Dr. Jitendra Jorgensen MD Tissues: PARACENTESIS FLUID Procedures: Special Stain Group II Mucicarmine Stain (control) Surgery Specimen Level IV Cytospin Fluid HEADER OPERATION: Ultrasound-guided paracentesis PRE-OP DIAGNOSIS: Ascites, gastric cancer TISSUE SUBMITTED: Paracentesis fluid for cytology DIAGNOSIS CYTOLOGY Paracentesis fluid for cytology (cytospin and cell block): Atypical epithelioid cells present. See comment. AM:janessa 11/25/2023 COMMENT Mucin stain with matched control was used in the evaluation of this case. Immunohistochemistry ([id number]) supports the above diagnosis. Case has been reviewed in consultation with Dr. Myers who concurs with the above diagnosis. IDC:SJ CYTOLOGY STUDY Slides are reviewed. CYTOLOGY GROSS Received is 90 ml of yellow gold cloudy fluid labeled with the patient's name and and designated per the requisition as paracentesis. Submitted for cytology preparation including cell block. / janessa 11/22/2023 TC:? CPT: 74654, 59912
--- NOTE | 2023-11-22 12:57 | PRO.PCM_ITS ---
Procedure Report Date of Procedure: 11/22/23 Assessment & Plan Assessment/Plan (1) Stomach cancer: QUALIFIERS: Malignant neoplasm of stomach location: overlapping locations Qualified Code(s): C16.8 - Malignant neoplasm of overlapping sites of stomach PLAN: PROCEDURE: Ultrasound guided paracentesis ORDERING PROVIDER: Dr. Abraham INDICATION: Male, 83 years old. Malignant ascites. PROVIDER: GUERO Gan TECHNIQUE: The risks, benefits, and alternatives to the procedure were explained to the patient. The specific risks of bleeding, infection, and damage to bowel were detailed and accepted. Witnessed informed consent was obtained. The abdomen was ultrasonographically surveyed. An appropriate pocket of fluid was identified in the right lower quadrant. The skin was prepped with chlorhexidine and sterile field established. 2% lidocaine was used for local anesthetic. Using ultrasound guidance, the peritoneal cavity was accessed with a 5-Yoruba paracentesis needle/catheter system. The trocar was removed. A total of 2250 ml of dark yellow colored fluid was removed from the peritoneal cavity. 100 mL of this fluid was collected and sent to laboratory for analysis. The catheter was removed and a sterile dressing was applied. The procedure was well tolerated. IMPRESSION: Successful ultrasound-guided paracentesis with right lower quadrant access site. Procedures Radiology Radiology US Procedures: 32144 Paracentesis
[2023-11-22 13:01] VITALS: BP 114/77; PULSE 74; RESP 18; O2SAT 98
[2023-11-22 13:02] VITALS: BP 110/72; BP 115/73; PULSE 60; PULSE 641; RESP 18; O2SAT 98
== END | disposition home or self-care (01) ==
PROVIDERS: PCP Family Medicine; Referring Provider Internal Medicine Medical Oncology; Visit Provider Internal Medicine Medical Oncology
DX: C16.8 Malignant neoplasm of overlapping sites of stomach (principal); R18.0 Malignant ascites; K29.50 Unspecified chronic gastritis without bleeding
CPT/HCPCS: 36415; 49083; 81002; 85025; 85610; 85730; 88108; 88305; 88313; 88341; 88342

== ENCOUNTER → 2023-12-06 | Outpatient (CLI) | payer MEDICARE, SELFPAY ==
--- NOTE | 2023-12-06 | IMM_PTH ---
PATHOLOGY RESULTS PATIENT: IRINA SEXTON Jr. LOC: [facility]#:[id number] AGE/SX: 83/M ROOM: RE12/06/[address]: Dr. Dave Abraham MD : 1940 BED: DIS: 12/06/2023 SPEC #: [id number] RECD: 12/09/23 13:29 STATUS: RENÉE REQ #: [id number] ANNELISE: 12/06/23 00:[address]: Dave Abraham DEPT: IMMUNOHISTOCHEMISTRY RECD BY: Ewelina Benitez ENTERED: 12/09/23 13:32 SP TYPE: IMMUNO OTHR DR: Dr. Jitendra Jorgensen MD Tissues: PARACENTESIS FLUID Procedures: RCC (add) NAPSIN A (add) True Ret (add) CK20 (add) CK5-6 (add) CK7 (add) CK8 (add) HER2 SRIDHAR (add) KI-67 (add) P53 (add) TTF1 (add) Pankeratin (initial) P40 (add) CDX2 (add) PSAP (add) CD68 (ADD) S-100 (add) PHYSICIAN & [place] [id number] SPECIMEN INFORMATION: Tissue Source: Paracentesis fluid Clinical Info: Ascites Specimen Number: [id number] CPT code: 35548, 82673 x16 METHODOLOGY: Deparaffinized sections of prefer/formalin-fixed tissue or PAP/DQ stained slides are incubated with monoclonal/polyclonal antibodies/oligonucleotide probes. Localization is made via biotin free immunoperoxidase method. Appropriate controls are performed and reacted as expected. Results on target cell population are indicated in the following table: RESULTS: ANTIBODY / CLONE RESULT AE1-3 (AE1/AE3/PCK26) positive CK7 (OV-TL12/30) positive CK8 (68jaxgI13) positive CK20 (KS20.8) negative CDX2 (IVJ3751M) negative CD68 (KP-1) negative S-100 (4C4.9) negative TTF-1 (8G7G3/1) negative Napsin A (Rabbit Polyclonal) negative RCC (PN-15) negative PSAP (PASE/4LJ) negative CALRET (polyclonal) negative CK5-6 (D5 & 1684) negative P40 (BC28) negative P53 (DO-7) negative, null pattern Ki-67 (30-9) positive, occasional cell Her-2neu (CB11) negative These tests were developed and their performance characteristics determined by [facility]. They may not have been cleared or approved by the U.S. Food and Drug Administration. The FDA has determined that such clearance or approval is not necessary. The above immunohistochemical/dualISH markers are ordered and reviewed by the Pathologist. INTERPRETATION: Paracentesis fluid (cell block): Rare atypical epithelioid cells suspicious for metastatic carcinoma. AM:janessa 12/10/2023 Case has been reviewed in consultation with Dr. Myers who concurs with the above diagnosis. IDC:SJ
--- NOTE | 2023-12-06 | FLU_PTH ---
PATHOLOGY RESULTS PATIENT: IRINA SEXTON Jr. LOC: [facility]#:[id number] AGE/SX: 83/M ROOM: RE12/06/[address]: Dr. Dave Abraham MD : 1940 BED: DIS: 12/06/2023 SPEC #: [id number] RECD: 12/06/23 08:59 STATUS: RENÉE CALERO #: [id number] ANNELISE: 12/06/23 00:[address]: Dave Abraham DEPT: CYTOLOGY RECD BY: Ann Glynn ENTERED: 12/06/23 10:28 SP TYPE: Fluid OTHR DR: Dr. Jitendra Jorgensen MD Tissues: PARACENTESIS FLUID Procedures: Special Stain Group II Mucicarmine Stain (control) Surgery Specimen Level IV Cytospin Fluid HEADER OPERATION: Ultrasound guided right paracentesis PRE-OP DIAGNOSIS: Ascites TISSUE SUBMITTED: Paracentesis fluid for cytology DIAGNOSIS CYTOLOGY Paracentesis fluid for cytology (cytospin and cell block): Atypical epithelioid cells are present. See comment. AM:janessa 12/09/2023 COMMENT Immunohistochemistry ([id number]) supports the above diagnosis. The atypical cells are suspicious for metastatic carcinoma. Patient's history of gastric carcinoma (S24-101) is noted. Mucin stain with matched control was used in the evaluation of this case and is positive in rare cells. Case has been reviewed in consultation with Dr. Myers who concurs with the above diagnosis. IDC:SJ CYTOLOGY STUDY Slides are reviewed. CYTOLOGY GROSS Received is 95 ml of dark yellow cloudy fluid labeled with the patient's name and and designated per the requisition as right paracentesis. Submitted for cytology preparation including cell block. / janessa 12/06/2023 TC:? CPT: 87265, 76916, 65219
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
[2023-12-06 08:05] VITALS: BP 108/70; PULSE 74; RESP 16; O2SAT 98
[2023-12-06] MEDS: Lidocaine 2% (20 ml mdv) 20 ML Vial INFILT (08:09)
[2023-12-06 08:20] VITALS: BP 100/70; PULSE 70; RESP 16; O2SAT 97
[2023-12-06 08:35] VITALS: BP 104/67; PULSE 75; RESP 16; O2SAT 99
[2023-12-06 08:40] VITALS: BP 105/68; PULSE 65; RESP 16; O2SAT 98
[2023-12-06 08:59] LABS: Cytology, Body Fluid / CSF SEE PATHOLOGY REPORT
--- NOTE | 2023-12-06 10:33 | PRO.PCM_ITS ---
Procedure Report Date of Procedure: 12/06/23 Assessment & Plan Assessment/Plan (1) Ascites, malignant: PLAN: PROCEDURE: Ultrasound guided paracentesis ORDERING PROVIDER: Dr. Abraham INDICATION: Male, 83 years old. Ascites. PROVIDER: GUERO Gan TECHNIQUE: The risks, benefits, and alternatives to the procedure were explained to the patient. The specific risks of bleeding, infection, and damage to bowel were detailed and accepted. Witnessed informed consent was obtained. The abdomen was ultrasonographically surveyed. An appropriate pocket of fluid was identified in the right lower quadrant. The skin was prepped with chlorhex idine and sterile field established. 2% lidocaine was used for local anesthetic. Using ultrasound guidance, the peritoneal cavity was accessed with a 5-Vietnamese paracentesis needle/catheter system. The trocar was removed. A total of 3350 ml of cloudy yellow colored fluid was removed from the peritoneal cavity. The catheter was removed and a sterile dressing was applied. The procedure was well tolerated. IMPRESSION: Successful ultrasound-guided paracentesis with right lower quadrant access site. Procedures Radiology Radiology US Procedures: 31314 Paracentesis
== END | disposition home or self-care (01) ==
PROVIDERS: PCP Family Medicine; Referring Provider Internal Medicine Medical Oncology; Visit Provider Internal Medicine Medical Oncology
DX: R18.8 Other ascites (principal); R18.0 Malignant ascites; Z85.00 Personal history of malignant neoplasm of unspecified digestive organ
CPT/HCPCS: 49083; 88108; 88305; 88313; 88341; 88342

== ENCOUNTER 2023-12-23 15:10 | Outpatient (RCR) | payer MEDICARE, SELFPAY | END 2024-01-19 23:59 | LOC: NS 15:10 | PROVIDERS: PCP Family Medicine; Visit Provider Internal Medicine Medical Oncology | DX: C16.8 Malignant neoplasm of overlapping sites of stomach (principal) ==

== ENCOUNTER → 2023-12-26 | Outpatient (CLI) | payer MEDICARE, SELFPAY ==
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
[2023-12-26 08:03] VITALS: BP 115/71; PULSE 68; RESP 16; TEMP 36.4; O2SAT 97
[2023-12-26] MEDS: Lidocaine 2% (20 ml mdv) 20 ML Vial INFILT (08:03)
[2023-12-26 08:20] VITALS: BP 109/79; PULSE 61; RESP 16; O2SAT 96
[2023-12-26 08:23] VITALS: BP 111/70; PULSE 58; RESP 16; O2SAT 97
--- NOTE | 2023-12-26 14:51 | PCM.OP.PRO ---
Procedure Report Date of Procedure: 12/26/23 Assessment & Plan Assessment/Plan (1) Ascites, malignant: PLAN: PROCEDURE: Ultrasound guided paracentesis ORDERING PROVIDER: Dr. Abraham INDICATION: Male, 83 years old. Ascites. PROVIDER: GUERO Gan TECHNIQUE: The risks, benefits, and alternatives to the procedure were explained to the patient. The specific risks of bleeding, infection, and damage to bowel were detailed and accepted. Witnessed informed consent was obtained. The abdomen was ultrasonographically surveyed. An appropriate pocket of fluid was identified in the right upper quadrant. The skin was prepped with chlorhexidine and sterile field established. 2% lidocaine was used for local anesthetic. Using ultrasound guidance, the peritoneal cavity was accessed with a 5-Ukrainian paracentesis needle/catheter system. The trocar was removed. A total of 3250 ml of clear yellow colored fluid was removed from the peritoneal cavity. The catheter was removed and a sterile dressing was applied. The procedure was well tolerated. IMPRESSION: Successful ultrasound-guided paracentesis with right upper quadrant access site. Procedures Radiology Radiology US Procedures: [id number] Paracentesis
== END | disposition home or self-care (01) ==
LOC: US 07:24
PROVIDERS: PCP Family Medicine; Referring Provider Internal Medicine Medical Oncology; Visit Provider Internal Medicine Medical Oncology
DX: C16.9 Malignant neoplasm of stomach, unspecified (principal); R18.0 Malignant ascites
CPT/HCPCS: 49083

== ENCOUNTER → 2024-01-08 | Outpatient (CLI) | payer MEDICARE, SELFPAY ==
[2024-01-08] MEDS: Lidocaine 2% (20 ml mdv) 20 ML Vial INFILT (08:22)
[2024-01-08 08:51] VITALS: BP 110/80; PULSE 68; RESP 18; TEMP 36.8; O2SAT 94
[2024-01-08 08:52] VITALS: BP 116/83; PULSE 69; RESP 18; O2SAT 96
[2024-01-08 08:54] VITALS: BP 109/71; PULSE 72; RESP 18; O2SAT 99
--- NOTE | 2024-01-08 08:58 | PRO.PCM_ITS ---
Procedure Report Date of Procedure: 01/08/24 Assessment & Plan Assessment/Plan (1) Ascites, malignant: PLAN: PROCEDURE: Ultrasound guided paracentesis ORDERING PROVIDER: Dr. Abraham INDICATION: Male, 83 years old. Ascites. PROVIDER: GUERO Gan TECHNIQUE: The risks, benefits, and alternatives to the procedure were explained to the patient. The specific risks of bleeding, infection, and damage to bowel were detailed and accepted. Witnessed informed consent was obtained. The abdomen was ultrasonographically surveyed. An appropriate pocket of fluid was identified in the right lower quadrant. The skin was prepped with chlorhex idine and sterile field established. 2% lidocaine was used for local anesthetic. Using ultrasound guidance, the peritoneal cavity was accessed with a 5-Tamazight paracentesis needle/catheter system. The trocar was removed. A total of 2850 ml of clear yellow colored fluid was removed from the peritoneal cavity. The catheter was removed and a sterile dressing was applied. The procedure was well tolerated. IMPRESSION: Successful ultrasound-guided paracentesis with right lower quadrant access site. Procedures Radiology Radiology US Procedures: [id number] Paracentesis
== END | disposition home or self-care (01) ==
LOC: US 07:53
PROVIDERS: PCP Family Medicine; Referring Provider Internal Medicine Medical Oncology; Visit Provider Internal Medicine Medical Oncology
DX: C16.9 Malignant neoplasm of stomach, unspecified (principal); R18.0 Malignant ascites
CPT/HCPCS: 49083

== ENCOUNTER → 2024-01-22 | Outpatient (CLI) | payer MEDICARE, SELFPAY ==
[2024-01-22 07:57] VITALS: BP 105/71; PULSE 71; RESP 16; O2SAT 97
[2024-01-22] MEDS: Lidocaine 2% (20 ml mdv) 20 ML Vial INFILT (07:57)
[2024-01-22 08:00] VITALS: BP 111/71; PULSE 70; RESP 16; O2SAT 97
[2024-01-22 08:15] VITALS: BP 109/80; PULSE 61; RESP 16; O2SAT 97
[2024-01-22 08:20] VITALS: BP 108/71; PULSE 63; RESP 16; O2SAT 97
--- NOTE | 2024-01-22 08:34 | PRO.PCM_ITS ---
Procedure Report Date of Procedure: 01/22/24 Assessment & Plan Assessment/Plan (1) Ascites, malignant: PLAN: PROCEDURE: Ultrasound guided paracentesis ORDERING PROVIDER: Dr. Abraham INDICATION: Male, 83 years old. Malignant ascites. PROVIDER: GUERO Gan TECHNIQUE: The risks, benefits, and alternatives to the procedure were explained to the patient. The specific risks of bleeding, infection, and damage to bowel were detailed and accepted. Witnessed informed consent was obtained. The abdomen was ultrasonographically surveyed. An appropriate pocket of fluid was identified in the right lower quadrant. The skin was prepped with chlorhexidine and sterile field established. 2% lidocaine was used for local anesthetic. Using ultrasound guidance, the peritoneal cavity was accessed with a 5-Kiswahili paracentesis needle/catheter system. The trocar was removed. A total of 3100 ml of clear yellow colored fluid was removed from the peritoneal cavity. The catheter was removed and a sterile dressing was applied. The procedure was well tolerated. IMPRESSION: Successful ultrasound-guided paracentesis with right lower quadrant access site. Procedures Radiology Radiology US Procedures: [id number] Paracentesis
== END | disposition home or self-care (01) ==
LOC: US 07:24
PROVIDERS: PCP Family Medicine; Referring Provider Internal Medicine Medical Oncology; Visit Provider Internal Medicine Medical Oncology
DX: C78.89 Secondary malignant neoplasm of other digestive organs (principal); R18.8 Other ascites
CPT/HCPCS: 49083

== ENCOUNTER → 2024-02-06 | Outpatient (CLI) | payer MEDICARE, SELFPAY ==
[2024-02-06] MEDS: Lidocaine 2% (20 ml mdv) 20 ML Vial INFILT (08:30)
[2024-02-06 08:40] VITALS: BP 104/78; PULSE 72; RESP 18; O2SAT 98
--- NOTE | 2024-02-06 08:44 | PRO.PCM_ITS ---
Procedure Report Date of Procedure: 02/06/24 Assessment & Plan Assessment/Plan (1) Ascites, malignant: PLAN: PROCEDURE: Ultrasound guided paracentesis ORDERING PROVIDER: Dr. Abraham INDICATION: Male, 83 years old. Malignant ascites. PROVIDER: GUERO Gan TECHNIQUE: The risks, benefits, and alternatives to the procedure were explained to the patient. The specific risks of bleeding, infection, and damage to bowel were detailed and accepted. Witnessed informed consent was obtained. The abdomen was ultrasonographically surveyed. An appropriate pocket of fluid was identified in the right lower quadrant. The skin was prepped with chlorhexidine and sterile field established. 2% lidocaine was used for local anesthetic. Using ultrasound guidance, the peritoneal cavity was accessed with a 5-Indonesian paracentesis needle/catheter system. The trocar was removed. A total of 3450 ml of clear yellow colored fluid was removed from the peritoneal cavity. The catheter was removed and a sterile dressing was applied. The procedure was well tolerated. IMPRESSION: Successful ultrasound-guided paracentesis with right lower quadrant access site. Procedures Radiology Radiology US Procedures: [id number] Paracentesis
[2024-02-06 08:56] VITALS: BP 106/80; PULSE 73; RESP 18; TEMP 36.3; O2SAT 98
== END | disposition home or self-care (01) ==
LOC: US 07:53
PROVIDERS: PCP Family Medicine; Referring Provider Internal Medicine Medical Oncology; Visit Provider Internal Medicine Medical Oncology
DX: C16.8 Malignant neoplasm of overlapping sites of stomach (principal); R18.0 Malignant ascites
CPT/HCPCS: 49083